=== PATIENT | male | born 1960 | race African-American/Black ===

== ENCOUNTER 2016-12-13 14:04 | Inpatient (IN) | payer OTHER ==
[~2016-12-13] VITALS: Ht 180.3 cm; Wt 93.2 kg
[~2016-12-13 14:04] MED LIST: ASPI81TA9 PO; ATOR20TA58 PO; CANA100T PO; CANA300T PO; CHOL200044 PO; DILT180C2 PO; GLIM4TAB2 PO; METF10002 PO; MULT-208 PO; OMEG1CAP38 PO; QUIN40TA7 PO; SITA100T PO; TAMS0.4C2 PO
[2016-12-13 15:42] LABS: BASO # 0.1 x10^3/uL (0.0-0.2); BASO % 1 % (0-3); EOS % 5 % (0-3); HEMATOCRIT 44.7 % (39.0-53.0); HEMOGLOBIN 14.5 g/dL (13.0-17.5); LYMPH # 2.6 x10^3/uL (1.0-4.8); LYMPH % 29 % (24-48); MEAN CORPUSCULAR HEMOGLOBIN 27 pg (25-35); MEAN CORPUSCULAR HGB CONC 32 g/dL (31-37); MEAN CORPUSCULAR VOLUME 83 fL (79-100); MONO % 6 % (0-9); NEUT % 60 % (31-73); PLATELET COUNT 239 x10^3/uL (140-400); RED BLOOD COUNT 5.42 x10^6/uL (4.30-5.70)
[2016-12-13 16:44] LABS: CALCIUM 9.5 mg/dL (8.5-10.1); CREATININE 1.3 mg/dL (0.7-1.3); GFR 68.6; POTASSIUM 3.8 mmol/L (3.5-5.1)
[2016-12-13] MEDS ORDERED: ASPIRIN 81 MG TAB.CHEW PO ONE (18:00)
--- NOTE | 2016-12-13 18:16 | PHYS DOC ---
Past Medical History Past Medical History: Diabetes-Type II, High Cholesterol, Hypertension, Other Additional Past Medical Histor: bph,SVT Past Surgical History: Other Additional Past Surgical Histo: circumcision, r eye,CARDIAC CATH Alcohol Use: None Drug Use: None Adult General Chief Complaint Chief Complaint: DIZZY/LIGHT HEADED HPI HPI Patient is a 56 year old male who presents with episodes of lightheadedness. Past medical history notable for SVT. Patient reports she has been having episodes like this for year and caused by SVT; they have been becoming more frequent. Last episode occurred approximately 7 PM last night. Aspirin this episode he will become diaphoretic, feels heart racing,, lightheaded. He tried some vagal maneuvers without success, however it resolved on its own and he is able to get out of bed. He spoke with Dr. Dejesus who instructed him to come to the emergency department for evaluation. Patient denies any chest discomfort or shortness of breath, no lightheadedness at this time. Review of Systems Review of Systems Constitutional: Episodes of lightheadedness, diaphoresis. Denies fever or chills Eyes: Denies change in visual acuity or eye pain HENT: Denies nasal congestion or sore throat Respiratory: Denies cough or shortness of breath Cardiovascular: Intermittent palpitations. Denies chest pain GI: Denies abdominal pain, nausea, vomiting, bloody stools or diarrhea : Denies dysuria or hematuria Musculoskeletal: Denies back pain or joint pain Integument: Denies rash or skin lesions Neurologic: Denies headache, focal weakness or sensory changes Current Medications Current Medications Current Medications Medications (Trade) Dose Ordered Sig/Grant Start Time Stop Time Status Last Admin Dose Admin Acetaminophen (Tylenol) 650 mg PRN Q4HRS PRN 12/13/16 18:30 12/14/16 18:29 Aspirin (Children'S Aspirin) 324 mg 1X ONCE 12/13/16 18:00 12/13/16 18:06 DC 12/13/16 18:14 324 MG Dextrose 12.5 gm PRN Q15MIN PRN 12/13/16 18:30 Insulin Aspart (Novolog) 0-7 UNITS TIDWMEALS 12/14/16 08:00 UNV Morphine Sulfate 2 mg PRN Q2HR PRN 12/13/16 18:30 12/14/16 18:29 Ondansetron HCl (Zofran) 4 mg PRN Q8HRS PRN 12/13/16 18:30 12/14/16 18:29 Allergies Allergies Allergies Coded Allergies Type Severity Reaction Last Updated Verified No Known Drug Allergies 03/16/14 No Physical Exam Physical Exam Constitutional: Well developed, well nourished, no acute distress, non-toxic appearance HENT: Normocephalic, atraumatic, bilateral external ears normal Eyes: EOMI, conjunctiva normal, no discharge Neck: Normal range of motion, no stridor Cardiovascular: Heart rate normal, regular rhythm, no murmur Lungs & Thorax: Bilateral breath sounds clear to auscultation Abdomen: Bowel sounds normal, soft, non-distended, no TTP Skin: Warm, dry, no erythema, no rash Extremities: No obvious deformity, no edema Neurologic: Alert and oriented X 3, no gross deficits noted Psychologic: Affect normal, judgement normal, mood normal Current Patient Data Vital Signs Vital Signs Date Time Temp Pulse Resp B/P Pulse Ox O2 Delivery O2 Flow Rate FiO2 12/13/16 18:10 92 26 132/70 95 Room Air 12/13/16 14:10 97.5 97.5 Lab Values Laboratory Tests Test 12/13/16 14:15 White Blood Count 9.0x10^3/uL (4.0-11.0) Red Blood Count 5.42x10^6/uL (4.30-5.70) Hemoglobin 14.5g/dL (13.0-17.5) Hematocrit 44.7% (39.0-53.0) Mean Corpuscular Volume 83fL (79-100) Mean Corpuscular Hemoglobin 27pg (25-35) Mean Corpuscular Hemoglobin Concent 32g/dL (31-37) Red Cell Distribution Width 16.0% (11.5-14.5) H Platelet Count 239x10^3/uL (140-400) Neutrophils (%) (Auto) 60% (31-73) Lymphocytes (%) (Auto) 29% (24-48) Monocytes (%) (Auto) 6% (0-9) Eosinophils (%) (Auto) 5% (0-3) H Basophils (%) (Auto) 1% (0-3) Neutrophils # (Auto) 5.4x10^3uL (1.8-7.7) Lymphocytes # (Auto) 2.6x10^3/uL (1.0-4.8) Monocytes # (Auto) 0.5x10^3/uL (0.0-1.1) Eosinophils # (Auto) 0.4x10^3/uL (0.0-0.7) Basophils # (Auto) 0.1x10^3/uL (0.0-0.2) Sodium Level 146mmol/L (136-145) H Potassium Level 3.8mmol/L (3.5-5.1) Chloride Level 108mmol/L (98-107) H Carbon Dioxide Level 26mmol/L (21-32) Anion Gap 12 (6-14) Blood Urea Nitrogen 20mg/dL (8-26) Creatinine 1.3mg/dL (0.7-1.3) Estimated GFR (Cockcroft-Gault) 68.6 Glucose Level 100mg/dL (70-99) H Calcium Level 9.5mg/dL (8.5-10.1) Magnesium Level 2.0mg/dL (1.8-2.4) Troponin I Quantitative 0.154ng/mL (0.000-0.055) Laboratory Tests 12/13/16 14:15 Laboratory Tests 12/13/16 14:15 EKG EKG EKG (my read): sinus rhythm, rate 88, normal axis, intervals wnl, no acute ischemic changes Radiology/Procedures Radiology/Procedures CXR (my read): No acute abnormality Course & Med Decision Making Course & Med Decision Making Pertinent Labs and Imaging studies reviewed. (See chart for details) Patient is 48-year-old male who presents with increasingly frequent episodes of palpitations, lightheadedness, diaphoresis. Presumably due to SVT. Asymptomatic at this time. Will obtain EKG, chest x-ray, lab work. Chest x-ray and EKG okay per my read. Labs notable for slightly elevated troponin at 0.154. Dose of aspirin ordered. I suspect this is elevated due to the SVT, and not ACS. Spoke with Dr. Zazueta (covering for Dr. Dejesus); will not anticoagulate at this time but will admit for serial troponins. Discussed with Dr. Prado, will admit under his care for further evaluation and treatment. Dragon Disclaimer Dragon Disclaimer This electronic medical record was generated, in whole or in part, using a voice recognition dictation system. Departure Departure Impression: Primary Impression: Arrhythmia Additional Impression: Elevated troponin I level Disposition: ADMITTED INPATIENT Admitting Physician: Margaret Prado Condition: STABLE Referrals: SHAUNA AVILA (PCP) Problem Qualifiers BERNY GRAY MD Dec 13, 2016 18:16
[2016-12-13] MEDS ORDERED: ONDANSETRON PF 4 MG/2 ML VIAL. IV PRN (18:30)
[2016-12-13] MEDS ORDERED: ACETAMINOPHEN 325 MG TABLET. PO PRN (18:30)
[2016-12-13] MEDS ORDERED: DEXTROSE 50% 25 GM / 50ML DISP.SYRIN. IV PRN (18:30)
[2016-12-13] MEDS ORDERED: MORPHINE SULFATE 2 MG/ML DISP.SYRIN. IV PRN (18:30)
--- NOTE | 2016-12-13 18:59 | EKG ---
[facility] [address] [place] [address] Test Date: 2016-12-13 Test Time: 14:13:03 Pat Name: RENUKA PIERCE Department: Room: Gender: M Manager Retail: : 1960 Requested By: BERNY GRAY Order Number: [id number] Reading MD: Rebeka Zazueta Measurements Intervals [place] Rate: 88 P: 47 MI: 170 QRS: 26 QRSD: 78 T: 56 QT: 342 QTc: 417 Interpretive Statements SINUS RHYTHM LEFT ATRIAL ABNORMALITY QRS(T) CONTOUR ABNORMALITY CONSISTENT WITH ANTEROSEPTAL INFARCT PROBABLY OLD ABNORMAL ECG RI6.01 Compared to ECG 11/24/2016 14:18:01 Atrial abnormality now present Myocardial infarct finding now present Sinus tachycardia no longer present Electronically Signed On 12-14-2016 19:12:44 TRAINING MANAGER by Rebeka Zazueta
[2016-12-13 20:24] VITALS: BP 115/71
[2016-12-13] MEDS: ATORVASTATIN CALCIUM 20 MG TABLET PO SCH (22:08)
[2016-12-13] MEDS: TAMSULOSIN 0.4 MG CAP.ER.24H. PO SCH (22:08)
[2016-12-13] MEDS: OMEGA-3 FATTY ACIDS/FISH OIL 1,000 MG CAPSULE. PO SCH (22:08)
[2016-12-13] MEDS: GLIMEPIRIDE 2 MG TABLET PO SCH (22:09)
[2016-12-13 23:38] VITALS: BP 115/59
--- NOTE | 2016-12-14 00:06 | ACF ---
Admission Forms Criteria SUPRAVENTRICULAR ARRHYTHMIAS Clinical Indications for Admission to Inpatient Care (Place 'X' for any and all applicable criteria): Admission is indicated by ANY ONE of the following (1)(2): [X]I. Arrhythmia causing significant symptoms or findings as indicated by ANY ONE of the following: [ ]a) Chest pain [ ]b) Myocardial ischemia [ ]c) Altered mental status [X]d) Dizziness, weakness, or light-headedness [ ]e) Dyspnea or hypoxemia [ ]f) Heart failure (eg, pulmonary edema)(11) [ ]II. Initiation of antiarrhythmic drug therapy is needed in patient at high risk of adverse events as indicated by ANY ONE of the following: [ ]a) Significant structural heart disease (eg, aortic stenosis, reduced ejection fraction, cardiomyopathy, congenital heart disease) [ ]b) Underlying sinus node or atrioventricular conduction disturbances [ ]c) Prolonged QT interval [ ]d) Need for treatment with antiarrhythmic that have significant proarrhythmic potential ( procainamide) [ ]e) Patient whose sinus rhythm has not been observed on ECG [ ]III. Inpatient admission required rather than observation care because of ANY ONE of the following: [ ]a) Syncope [ ]b) Patient has automatic implanted cardioverter-defibrillator that is repeatedly firing, malfunctioning, or in need of immediate adjustment of settings beyond scope of ambulatory or observation care. [ ]c) Hemodynamic instability that is severe or persistent [ ]d) Unstable cardiac conduction defects indicated by ANY ONE of the following(19)(20)(21): [ ]a) Type II second-degree atrioventricular block [ ]b) Third-degree atrioventricular block [ ]C) New-onset left bundle branch block with suspected myocardial ischemia [ ]e) Severe electrolyte abnormalities requiring inpatient care [ ]f) Continuous intravenous infusion of anticoagulation, platelet inhibitor, vasoactive, or antiarrhythmic medication(14) [ ]g) Pulmonary artery catheter monitoring [ ]h) Repeat cardioversion necessary [ ]i) Other condition, treatment or monitoring requiring inpatient admission [ ]IV. Underlying medical condition that necessitates inpatient care (eg, thyrotoxicosis, severe acidosis) Extended stay beyond goal length of stay may be needed for(1)(17)(18): [ ]a) Persistent hemodynamic instability or continued severe arrhythmia [ ]b) Continued monitoring during initiation of certain medications (eg, some antiarrhythmics)(17)(19) [ ]c) Precipitating cause requires ongoing inpatient care (eg, severe electrolyte abnormality, systemic infection, acidosis) [ ]d) Unstable comorbidities The original [facility] content created by [facility] has been revised. The portions of the content which have been revised are identified through the use of italic text or in bold, and [facility] has neither reviewed nor approved the modified material. All other unmodified content is copyright [facility]. Please see references footnoted in the original [facility] edition 2016 Admission Criteria Met?: Yes ANDREA CENTENO Dec 14, 2016 00:06
[2016-12-14 02:19] VITALS: BP 103/56
--- NOTE | 2016-12-14 04:48 | HP ---
ADMIT DATE: 12/13/2016 CHIEF COMPLAINT: Lightheadedness, palpitations. HISTORY OF PRESENT ILLNESS: The patient is a pleasant 56-year-old male who follows with Dr. Dejesus. He has been having chronic issues with SVT. It has been worsening over the past couple of days. Today, he felt his heart racing again. He called Dr. Dejesus. He was told to go to the ER. While in the ER, he was noted to have an elevated troponin and arrhythmia. I discussed the case with ER physician. We are going to admit the patient, consulting cardiology. PAST MEDICAL HISTORY: SVT, BPH, diabetes, hyperlipidemia, hypertension, cardiac catheterization, circumcision, and right eye surgery. ALLERGIES: None. FAMILY HISTORY: Coronary artery disease. SOCIAL HISTORY: He works. He does not drink, smoke or take drugs. He is . MEDICATIONS: Reviewed, please refer to the MRAD. REVIEW OF SYSTEMS: GENERAL: No history of weight change, weakness or fevers. SKIN: No bruising, hair changes or rashes. EYES: No blurred, double or loss of vision. NOSE AND THROAT: No history of nosebleeds, hoarseness or sore throat. HEART: The patient complains of palpitations. LUNGS: Denies cough, hemoptysis, wheezing or shortness of breath. GASTROINTESTINAL: Denies changes in appetite, nausea, vomiting, diarrhea or constipation. GENITOURINARY: No history of frequency, urgency, hesitancy or nocturia. NEUROLOGIC: Denies history of numbness, tingling, tremor or weakness. PSYCHIATRIC: No history of panic, anxiety or depression. ENDOCRINE: No history of heat or cold intolerance, polyuria or polydipsia. EXTREMITIES: Denies muscle weakness, joint pain, pain on walking or stiffness. PHYSICAL EXAMINATION: VITAL SIGNS: Temperature afebrile, pulse currently at 80, respirations 18, blood pressure 113/60. GENERAL: He is alert, cooperative. His is present. HEART: Normal S1, S2. LUNGS: Clear. ABDOMEN: Soft. EXTREMITIES: No edema. SKIN: No rashes. PSYCHIATRIC: Stable. VASCULAR: Good capillary refill. ENDOCRINE: No thyromegaly. LYMPHATICS: No cervical nodes. HEMATOPOIETIC: No bruising. LABORATORY DATA: Hematology normal. Electrolytes normal, although sodium 146 and chloride 108. Troponin 0.154. ASSESSMENT AND PLAN: Recurrent supraventricular tachycardia. The patient has been admitted. We will consult cardiology, serial enzymes, serial EKGs. Resume home medicines. JOSELITO CARREON DO DR: PRAVIN/lamont JOB#: [id number] / [id number]
[2016-12-14] MEDS ORDERED: ASPIRIN ENTERIC COATED 81 MG TABLET.DR. PO SCH (05:00)
[2016-12-14] MEDS ORDERED: NON FORMULARY ITEM (Canagliflozin (Invokana) 300 MG) PO SCH (05:00)
[2016-12-14 05:56] LABS: BASO # 0.1 x10^3/uL (0.0-0.2); BASO % 1 % (0-3); EOS % 6 % (0-3); HEMATOCRIT 43.3 % (39.0-53.0); HEMOGLOBIN 13.9 g/dL (13.0-17.5); LYMPH # 3.4 x10^3/uL (1.0-4.8); LYMPH % 36 % (24-48); MEAN CORPUSCULAR HEMOGLOBIN 27 pg (25-35); MEAN CORPUSCULAR HGB CONC 32 g/dL (31-37); MEAN CORPUSCULAR VOLUME 83 fL (79-100); MONO % 7 % (0-9); NEUT % 51 % (31-73); PLATELET COUNT 224 x10^3/uL (140-400); RED BLOOD COUNT 5.21 x10^6/uL (4.30-5.70); RED CELL DISTRIBUTION WIDTH 15.8 % (11.5-14.5); WHITE BLOOD COUNT 9.3 x10^3/uL (4.0-11.0)
[2016-12-14 06:19] LABS: GFR 92.9
[2016-12-14] MEDS ORDERED: REGADENOSON 0.4 MG/5 ML DISP.SYRIN. IV ONE (08:15)
--- NOTE | 2016-12-14 08:15 | RAD ---
Two view chest History:episodes of dizziness PA and lateral views of the chest are submitted. Comparison: 09/09/2014 Findings: There is no significant infiltrate, pleural effusion, or pneumothorax. The pericardial cardiac silhouette is within normal limits in size. The trachea is in the midline. No acute osseous abnormality is identified. Impression: There is no evidence of acute cardiopulmonary disease.
[2016-12-14 10:32] VITALS: BP 110/60
--- NOTE | 2016-12-14 11:49 | PDOC ---
PROGRESS NOTES Chief Complaint Chief Complaint cc: chest pain A/P chest pain Diabetes-Type II, High Cholesterol, Hypertension Plan Cardizem telemetry nuclear stress test cbc/bmp premsingh following History of Present Illness History of Present Illness no chest pain no fever no chills. Vitals Vitals Vital Signs Date Time Temp Pulse Resp B/P Pulse Ox O2 Delivery O2 Flow Rate FiO2 12/14/16 10:32 97.7 85 16 110/60 92 Room Air 97.7 Physical Exam General: Alert, Oriented X3 Heart: Regular rate, Normal S1, Normal S2 Lungs: Clear, Wheezing Abdomen: Normal bowel sounds, Soft Labs LABS Laboratory Tests Test 12/13/16 14:15 12/13/16 21:16 12/14/16 00:30 12/14/16 03:00 White Blood Count 9.0x10^3/uL (4.0-11.0) 9.3x10^3/uL (4.0-11.0) Red Blood Count 5.42x10^6/uL (4.30-5.70) 5.21x10^6/uL (4.30-5.70) Hemoglobin 14.5g/dL (13.0-17.5) 13.9g/dL (13.0-17.5) Hematocrit 44.7% (39.0-53.0) 43.3% (39.0-53.0) Mean Corpuscular Volume 83fL (79-100) 83fL (79-100) Mean Corpuscular Hemoglobin 27pg (25-35) 27pg (25-35) Mean Corpuscular Hemoglobin Concent 32g/dL (31-37) 32g/dL (31-37) Red Cell Distribution Width 16.0% (11.5-14.5) 15.8% (11.5-14.5) Platelet Count 239x10^3/uL (140-400) 224x10^3/uL (140-400) Neutrophils (%) (Auto) 60% (31-73) 51% (31-73) Lymphocytes (%) (Auto) 29% (24-48) 36% (24-48) Monocytes (%) (Auto) 6% (0-9) 7% (0-9) Eosinophils (%) (Auto) 5% (0-3) 6% (0-3) Basophils (%) (Auto) 1% (0-3) 1% (0-3) Neutrophils # (Auto) 5.4x10^3uL (1.8-7.7) 4.7x10^3uL (1.8-7.7) Lymphocytes # (Auto) 2.6x10^3/uL (1.0-4.8) 3.4x10^3/uL (1.0-4.8) Monocytes # (Auto) 0.5x10^3/uL (0.0-1.1) 0.6x10^3/uL (0.0-1.1) Eosinophils # (Auto) 0.4x10^3/uL (0.0-0.7) 0.5x10^3/uL (0.0-0.7) Basophils # (Auto) 0.1x10^3/uL (0.0-0.2) 0.1x10^3/uL (0.0-0.2) Sodium Level 146mmol/L (136-145) 142mmol/L (136-145) Potassium Level 3.8mmol/L (3.5-5.1) 4.0mmol/L (3.5-5.1) Chloride Level 108mmol/L (98-107) 106mmol/L (98-107) Carbon Dioxide Level 26mmol/L (21-32) 27mmol/L (21-32) Anion Gap 12 (6-14) 9 (6-14) Blood Urea Nitrogen 20mg/dL (8-26) 18mg/dL (8-26) Creatinine 1.3mg/dL (0.7-1.3) 1.0mg/dL (0.7-1.3) Estimated GFR (Cockcroft-Gault) 68.6 92.9 Glucose Level 100mg/dL (70-99) 98mg/dL (70-99) Calcium Level 9.5mg/dL (8.5-10.1) 9.0mg/dL (8.5-10.1) Magnesium Level 2.0mg/dL (1.8-2.4) Troponin I Quantitative 0.154ng/mL (0.000-0.055) 0.073ng/mL (0.000-0.055) 0.060ng/mL (0.000-0.055) Thyroid Stimulating Hormone (TSH) 0.444uIU/mL (0.358-3.74) Glucose (Fingerstick) 128mg/dL (70-99) Assessment and Plan Assessmemt and Plan Problems Medical Problems: (1) Arrhythmia Status: Acute (2) Arrhythmia Status: Acute (3) Elevated troponin Status: Acute (4) Elevated troponin I level Status: Acute Problems: Comment Review of Relevant I have reviewed the following items reuben (where applicable) has been applied. Labs Laboratory Tests Test 12/13/16 14:15 12/13/16 21:16 12/14/16 00:30 12/14/16 03:00 White Blood Count 9.0x10^3/uL (4.0-11.0) 9.3x10^3/uL (4.0-11.0) Red Blood Count 5.42x10^6/uL (4.30-5.70) 5.21x10^6/uL (4.30-5.70) Hemoglobin 14.5g/dL (13.0-17.5) 13.9g/dL (13.0-17.5) Hematocrit 44.7% (39.0-53.0) 43.3% (39.0-53.0) Mean Corpuscular Volume 83fL (79-100) 83fL (79-100) Mean Corpuscular Hemoglobin 27pg (25-35) 27pg (25-35) Mean Corpuscular Hemoglobin Concent 32g/dL (31-37) 32g/dL (31-37) Red Cell Distribution Width 16.0% (11.5-14.5) 15.8% (11.5-14.5) Platelet Count 239x10^3/uL (140-400) 224x10^3/uL (140-400) Neutrophils (%) (Auto) 60% (31-73) 51% (31-73) Lymphocytes (%) (Auto) 29% (24-48) 36% (24-48) Monocytes (%) (Auto) 6% (0-9) 7% (0-9) Eosinophils (%) (Auto) 5% (0-3) 6% (0-3) Basophils (%) (Auto) 1% (0-3) 1% (0-3) Neutrophils # (Auto) 5.4x10^3uL (1.8-7.7) 4.7x10^3uL (1.8-7.7) Lymphocytes # (Auto) 2.6x10^3/uL (1.0-4.8) 3.4x10^3/uL (1.0-4.8) Monocytes # (Auto) 0.5x10^3/uL (0.0-1.1) 0.6x10^3/uL (0.0-1.1) Eosinophils # (Auto) 0.4x10^3/uL (0.0-0.7) 0.5x10^3/uL (0.0-0.7) Basophils # (Auto) 0.1x10^3/uL (0.0-0.2) 0.1x10^3/uL (0.0-0.2) Sodium Level 146mmol/L (136-145) 142mmol/L (136-145) Potassium Level 3.8mmol/L (3.5-5.1) 4.0mmol/L (3.5-5.1) Chloride Level 108mmol/L (98-107) 106mmol/L (98-107) Carbon Dioxide Level 26mmol/L (21-32) 27mmol/L (21-32) Anion Gap 12 (6-14) 9 (6-14) Blood Urea Nitrogen 20mg/dL (8-26) 18mg/dL (8-26) Creatinine 1.3mg/dL (0.7-1.3) 1.0mg/dL (0.7-1.3) Estimated GFR (Cockcroft-Gault) 68.6 92.9 Glucose Level 100mg/dL (70-99) 98mg/dL (70-99) Calcium Level 9.5mg/dL (8.5-10.1) 9.0mg/dL (8.5-10.1) Magnesium Level 2.0mg/dL (1.8-2.4) Troponin I Quantitative 0.154ng/mL (0.000-0.055) 0.073ng/mL (0.000-0.055) 0.060ng/mL (0.000-0.055) Thyroid Stimulating Hormone (TSH) 0.444uIU/mL (0.358-3.74) Glucose (Fingerstick) 128mg/dL (70-99) Laboratory Tests Test 12/13/16 14:15 12/13/16 21:16 12/14/16 00:30 12/14/16 03:00 White Blood Count 9.0x10^3/uL (4.0-11.0) 9.3x10^3/uL (4.0-11.0) Red Blood Count 5.42x10^6/uL (4.30-5.70) 5.21x10^6/uL (4.30-5.70) Hemoglobin 14.5g/dL (13.0-17.5) 13.9g/dL (13.0-17.5) Hematocrit 44.7% (39.0-53.0) 43.3% (39.0-53.0) Mean Corpuscular Volume 83fL (79-100) 83fL (79-100) Mean Corpuscular Hemoglobin 27pg (25-35) 27pg (25-35) Mean Corpuscular Hemoglobin Concent 32g/dL (31-37) 32g/dL (31-37) Red Cell Distribution Width 16.0% (11.5-14.5) 15.8% (11.5-14.5) Platelet Count 239x10^3/uL (140-400) 224x10^3/uL (140-400) Neutrophils (%) (Auto) 60% (31-73) 51% (31-73) Lymphocytes (%) (Auto) 29% (24-48) 36% (24-48) Monocytes (%) (Auto) 6% (0-9) 7% (0-9) Eosinophils (%) (Auto) 5% (0-3) 6% (0-3) Basophils (%) (Auto) 1% (0-3) 1% (0-3) Neutrophils # (Auto) 5.4x10^3uL (1.8-7.7) 4.7x10^3uL (1.8-7.7) Lymphocytes # (Auto) 2.6x10^3/uL (1.0-4.8) 3.4x10^3/uL (1.0-4.8) Monocytes # (Auto) 0.5x10^3/uL (0.0-1.1) 0.6x10^3/uL (0.0-1.1) Eosinophils # (Auto) 0.4x10^3/uL (0.0-0.7) 0.5x10^3/uL (0.0-0.7) Basophils # (Auto) 0.1x10^3/uL (0.0-0.2) 0.1x10^3/uL (0.0-0.2) Sodium Level 146mmol/L (136-145) 142mmol/L (136-145) Potassium Level 3.8mmol/L (3.5-5.1) 4.0mmol/L (3.5-5.1) Chloride Level 108mmol/L (98-107) 106mmol/L (98-107) Carbon Dioxide Level 26mmol/L (21-32) 27mmol/L (21-32) Anion Gap 12 (6-14) 9 (6-14) Blood Urea Nitrogen 20mg/dL (8-26) 18mg/dL (8-26) Creatinine 1.3mg/dL (0.7-1.3) 1.0mg/dL (0.7-1.3) Estimated GFR (Cockcroft-Gault) 68.6 92.9 Glucose Level 100mg/dL (70-99) 98mg/dL (70-99) Calcium Level 9.5mg/dL (8.5-10.1) 9.0mg/dL (8.5-10.1) Magnesium Level 2.0mg/dL (1.8-2.4) Troponin I Quantitative 0.154ng/mL (0.000-0.055) 0.073ng/mL (0.000-0.055) 0.060ng/mL (0.000-0.055) Thyroid Stimulating Hormone (TSH) 0.444uIU/mL (0.358-3.74) Glucose (Fingerstick) 128mg/dL (70-99) Medications Current Medications Aspirin (Children'S Aspirin) 324 mg 1X ONCE PO Last administered on 12/13/16 18:14; Start 12/13/16 at 18:00; Stop 12/13/16 at 18:06; Status DC Ondansetron HCl (Zofran) 4 mg PRN Q8HRS PRN IV NAUSEA/VOMITING; Start 12/13/16 at 18:30; Stop 12/14/16 at 18:29 Morphine Sulfate 2 mg PRN Q2HR PRN IV PAIN; Start 12/13/16 at 18:30; Stop 12/14 at 18:29 Acetaminophen (Tylenol) 650 mg PRN Q4HRS PRN PO FEVER; Start 12/13/16 at 18:30 ; Stop 12/14/16 at 18:29 Insulin Aspart (Novolog) 0-7 UNITS TIDWMEALS SQ ; Start 12/14/16 at 08:00 Dextrose 12.5 gm PRN Q15MIN PRN IV SEE COMMENTS; Start 12/13/16 at 18:30 Aspirin (Ecotrin) 81 mg DAILY05 PO ; Start 12/14/16 at 05:00 Atorvastatin Calcium (Lipitor) 20 mg QHS PO Last administered on 12/13/16 22: 08; Start 12/13/16 at 21:00 Diltiazem HCl (Cardizem 24hr Cd) 180 mg DAILY PO ; Start 12/14/16 at 09:00 Tamsulosin HCl (Flomax) 0.4 mg HS PO Last administered on 12/13/16 22:08; Start 12/13/16 at 21:00 Non-Formulary Medication 300 mg DAILY05 PO ; Start 12/14/16 at 05:00; Status UNV Glimepiride (Amaryl) 4 mg BID PO Last administered on 12/13/16 22:09; Start at 21:00 Multivitamins/ Calcium (Thera M Plus) 1 tab DAILY PO ; Start 12/14/16 at 09:00 Fish Oil (Fish Oil) 1,000 mg BID PO Last administered on 12/13/16 22:08; Start 12/13/16 at 21:00 Lisinopril (Prinivil) 40 mg DAILY PO ; Start 12/14/16 at 09:00 Linagliptin (Tradjenta) 5 mg DAILY PO ; Start 12/14/16 at 09:00 Regadenoson (Lexiscan) 0.4 mg 1X ONCE IV Last administered on 12/14/16t 09:42 ; Start 12/14/16 at 08:15; Stop 12/14/16 at 08:16; Status DC Active Scripts Active Reported Cardizem Cd (Diltiazem Hcl) 180 Mg Cap.er.24h 180 Mg PO DAILY D3-2000 (Cholecalciferol (Vitamin D3)) 2,000 Unit Capsule 5,000 Unit PO Quinapril Hcl 40 Mg Tablet 1 Tab PO DAILY Aspirin Ec (Aspirin) 81 Mg Tablet.dr 81 Mg PO DAILY05 Januvia (Sitagliptin Phosphate) 100 Mg Tablet 1 Tab PO DAILY Invokana (Canagliflozin) 300 Mg Tablet 300 Mg PO DAILY05 Glimepiride 4 Mg Tablet 1 Tab PO BID Metformin Hcl 1,000 Mg Tablet 1 Tab PO BID [place] 3 Fish Oil Softgel ([place]-3 Fatty Acids/Fish Oil) 1 Each Capsule. 1 Each PO BID Multi-Day Vitamins (Multivitamin) 1 Each Tablet 1 Tab PO BID Tamsulosin Hcl 0.4 Mg Cap.er.24h 0.4 Mg PO HS Atorvastatin Calcium 20 Mg Tablet 20 Mg PO DAILY Vitals/I & O Vital Sign - Last 24 Hours 12/13/16 12/13/16 12/13/16 12/13/16 14:10 14:13 14:43 15:13 Temp 97.5 97.5 Pulse 96 94 90 90 Resp 26 B/P 137/70 122/67 115/75 119/73 Pulse Ox 96 95 95 O2 Delivery Room Air Room Air Room Air Room Air 12/13/16 12/13/16 12/13/16 12/13/16 18:10 20:00 20:24 20:24 Temp 97.7 97.7 97.7 97.7 Pulse 92 88 83 83 Resp 26 18 18 18 B/P 132/70 119/60 115/71 115/71 Pulse Ox 95 96 96 96 O2 Delivery Room Air Room Air Room Air Room Air 12/13/16 12/14/16 12/14/16 23:38 02:19 10:32 Temp 98.4 97.9 97.7 98.4 97.9 97.7 Pulse 75 65 85 Resp 20 18 16 B/P 115/59 103/56 110/60 Pulse Ox 96 97 92 O2 Delivery Room Air Room Air Room Air Intake and Output 12/13/16 12/13/16 12/14/16 15:00 23:00 07:00 Intake Total 800 ml Balance 800 ml TAMI BAUTISTA MD Dec 14, 2016 11:49
[2016-12-14] MEDS: INSULIN ASPART 300 UNITS/3 ML INSULN.PEN SQ SCH ×3 (12:00→17:00)
--- NOTE | 2016-12-14 12:53 | RAD ---
APPROVED REPORT Test Type: Pharmacological Stress Nurse/Tech: Lexi Levy R.N. Test Indications: CP, SVT Cardiac History: SVT, HTN Medications: SEE EMR Medical History: Former smoker, DM Resting ECG: SR PAC's Resting Heart Rate: 77 bpm Resting Blood Pressure: 125/63mmHg Pretest Chest Pain: None Nurse/Tech Notes S1S2, lungs CTA, denied chest pain or SOA. Consent: The procedure was explained to the patient in lay terms. Informed consent was witnessed. Arturo eout was entered into [employer]. History and Stress Test performed by Lexi Levy R.N. Pharm. Details Pharmacologic stress testing was performed using 0.4mg per 5ml of regadenoson given intravenously ove r 7-10 seconds. Stress Symptoms SOA. POST EXERCISE Reason for Termination: Infusion complete Max HR: 119 bpm Max Blood Pressure: 134/62mmHg Blood Pressure response to exercise: Normal blood pressure response during stress. Heart Rate response to exercise: Normal Chest Pain: No. Arrhythmia: Yes. PAC's ST Change: No. INTERPRETATION Stress EKG Conclusion: No acute changes were noted. Imaging Protocol IMAGE PROTOCOL: Rest Tc-99m/stress Tc-99m 1 day Rest: Stress: Viability: Radiopharm.Tc99m [id number] Sestamibi Dose12.8mCi 38.4mCi Duration 15min. 10min. Img Date 12/14/2016 12/14/2016 Inj-Img [id number]. 60min. Rest Admin Site:IV - Left AntecubitalAdministrator:RICKI Guillermo Stress Admin Site: IV - Left AntecubitalAdministrator: RICKI Guillermo STRESS DATA End Diast. Vol.116.0mlAv. Heart Rate82.0bpm End Syst. Vol.40.0mlCO Index BSA0.0L/min Myocardial Jybe420.0gEject. Aaqohggj62.0% Stress Rates Pk. Fill Rate2.96EDV/secLVtime Pk. Fill 92.81msec Pk. Empty Rate4.70ESV/secLVtime Pk. Yssyr772.91msec 11/04 Pk. Fill1.96EDV/sec Stress Scores Regional WT0.00Summed WT1.00 Regional WM0.00Summed WM1.00 LV Perf. Quant 17 Seg. SSS0.00 17 Seg. SRS0.00 17 Seg. SDS0.00 Stress Defect Extent (% LAD)0.00Rest Defect Extent (% LAD)0.00Rev. Defect Extent (% LAD)0.00 Stress Defect Extent (% LCX) 0.00Rest Defect Extent (% LCX)0.00Rev. Defect Extent (% LCX)0.00 Stress Defect Extent (% RCA)0.00Rest Defect Extent (% RCA)0.00Rev. Defect Extent (% RCA)0.00 Stress Defect Extent (% CHEYANNE)0.00Rest Defect Extent (% CHEYANNE)0.00Rev. Defect Extent (% CHEYANNE)0.00 Conclusion 1. Mick eectrocardiographic changes suggestive of myocardial ischemia with pharmacological stress. 2. No significant perfusion defects to suggest myocardial ischemia or scar. 3. Normal wall motion and wall thickening with an ejection fraction of 66%. 4. Scan indicates low risk for future cardiac events.
[2016-12-14] MEDS: GLIMEPIRIDE 2 MG TABLET PO SCH ×2 (13:43→21:06)
[2016-12-14] MEDS: MULTIVITAMIN with MINERAL TABLET. PO SCH (13:43)
[2016-12-14] MEDS: OMEGA-3 FATTY ACIDS/FISH OIL 1,000 MG CAPSULE. PO SCH ×2 (13:43→21:06)
[2016-12-14] MEDS: LINAGLIPTIN 5 MG TABLET PO SCH (13:45)
[2016-12-14] MEDS: DILTIAZEM HCL 180 MG CAP.ER.24H PO SCH (13:45)
[2016-12-14] MEDS: LISINOPRIL 40 MG TABLET. PO SCH (13:46)
[2016-12-14 15:00] VITALS: BP 133/72
[2016-12-14 19:48] VITALS: BP 126/54
[2016-12-14] MEDS: TAMSULOSIN 0.4 MG CAP.ER.24H. PO SCH (21:06)
[2016-12-14] MEDS: ATORVASTATIN CALCIUM 20 MG TABLET PO SCH (21:06)
[2016-12-14 23:37] VITALS: BP 97/57
--- NOTE | 2016-12-15 02:15 | CONS ---
DATE OF CONSULTATION: HISTORY OF PRESENT ILLNESS: This is a 66-year-old black male that I saw for Dr. Dejesus. This patient came into the Emergency Room having had an episode of palpitations the previous night. The palpitations started around 7:00 p.m. and resolved at around 1:00 a.m. He tried various maneuvers, but it did not resolve. He felt well the next morning and had no palpitations, but thought he would have to come to the Emergency Room to check himself. He had been hospitalized on the 24 of November having had palpitations at work. The ambulance was called. Rhythm strip recorded an SVT that Dr. Dejesus probably saw, but did make a note in his chart. He was discharged on Cardizem. He was allowed to go back to work. He was taking the Cardizem and despite that had an episode of palpitation on the day prior to hospitalization. He had had an episode of syncope in 2002, the etiology of which was never determined and no arrhythmia was recorded. Previous history of hypertension, diabetes and dyslipidemia. He smoked from 9184-2930 but has not smoked since then. He takes alcohol only very occasionally. He works and he usually works several nights a week. MEDICATIONS: 1. Aspirin 81 mg a day. 2. Atorvastatin 20 mg a day. 3. Invokana 300 mg a day. 4. Vitamin D. 5. Diltiazem 180 mg a day. 6. Glimepiride 4 mg a day. 7. Metformin 1000 mg twice a day. 8. Gilman 3 fatty acids. 9. Quinapril 40 mg a day. 10. ____ 100 mg a day. 11. Tamsulosin 0.4 mg a day. PHYSICAL EXAMINATION: GENERAL: He was in no distress. VITAL SIGNS: The heart rate was 80 per minute and regular. The blood pressure is 130/80. LUNGS: Clear. HEART: The heart sounds are normal with no murmur or gallop. ABDOMEN: Soft. EXTREMITIES: There is no edema. The distal pulses are palpable. LABORATORY DATA: The hemoglobin was normal. The TSH was somewhat low recently, but the free T3 and free T4 were normal. An echocardiogram done just 10 days ago showed a normal EF and no significant valvular dysfunction and no pulmonary hypertension. The troponin was mildly elevated to 0.154. His troponin was mildly elevated. The last time also when he came in after the episode of the supraventricular tachycardia. An EKG was normal. A chest x-ray was normal. IMPRESSION: 1. Probable supraventricular tachycardia. 2. Mild elevation in troponin, probably secondary to subendocardial ischemia during the tachycardia. Because of his risk factors of hypertension, diabetes and dyslipidemia, even though they are under control, presumably because of the mild elevation in the troponin with a supraventricular tachycardia, I would like to perform a myocardial perfusion imaging study to see whether he has evidence of underlying coronary artery disease. Otherwise I would continue with Cardizem that he is on. Dr. Dejesus returns tomorrow. Thank you for asking us to see him. TISHA ANNA MD DR: ABDULKADIR/lamont JOB#: [id number] / [id number]
[2016-12-15 03:15] VITALS: BP 85/51
[2016-12-15 03:33] VITALS: BP 100/54
[2016-12-15 07:39] VITALS: BP 111/71
[2016-12-15] MEDS: INSULIN ASPART 300 UNITS/3 ML INSULN.PEN SQ SCH ×2 (08:00→12:50)
[2016-12-15] MEDS ORDERED: ASPIRIN ENTERIC COATED 81 MG TABLET.DR. PO SCH (09:00)
[2016-12-15] MEDS: DILTIAZEM HCL 180 MG CAP.ER.24H PO SCH (10:04)
[2016-12-15] MEDS: OMEGA-3 FATTY ACIDS/FISH OIL 1,000 MG CAPSULE. PO SCH (10:05)
[2016-12-15] MEDS: GLIMEPIRIDE 2 MG TABLET PO SCH (10:05)
[2016-12-15] MEDS: LISINOPRIL 40 MG TABLET. PO SCH (10:05)
[2016-12-15] MEDS: LINAGLIPTIN 5 MG TABLET PO SCH (10:05)
[2016-12-15] MEDS: MULTIVITAMIN with MINERAL TABLET. PO SCH (10:05)
[2016-12-15 11:14] VITALS: BP 113/73
--- NOTE | 2016-12-15 12:49 | PDOC ---
PROGRESS NOTES Subjective Subjective Pt was laying comfortably in bed when we saw him this morning. Pt was in good spirits and stated he feels fine. Pt stated he has had spells of light headedness, diaphoretic, and palpitations 4-5 times since November. Pt has no complaints at this time. Pt denied chest pain, palpitations, SOB, n/v, headache , diaphoresis. Objective Objective Vital Signs Date Time Temp Pulse Resp B/P Pulse Ox O2 Delivery O2 Flow Rate FiO2 12/15/16 11:14 98.0 66 20 113/73 97 Room Air 98.0 Intake and Output 12/15/16 07:00 Intake Total 940 ml Balance 940 ml Intake Oral 940 ml # Voids 5 Physical Exam Heart: Regular rate, Normal S1, Normal S2, No murmurs Assessment Assessment Problems Medical Problems: (1) Arrhythmia Status: Acute (2) Arrhythmia Status: Acute (3) Chest pain Status: Acute (4) Elevated troponin Status: Acute (5) Elevated troponin I level Status: Acute Plan Plan of Care Paroxysmal SVT Agree with current treatment Stop Cardizem Start Amiodarone 400 mg BID for 7 days then 200 mg once a day Stable for discharge Comment Review of Relevant I have reviewed the following items reuben (where applicable) has been applied. Labs Laboratory Tests Test 12/13/16 14:15 12/13/16 21:16 12/14/16 00:30 12/14/16 03:00 White Blood Count 9.0x10^3/uL (4.0-11.0) 9.3x10^3/uL (4.0-11.0) Red Blood Count 5.42x10^6/uL (4.30-5.70) 5.21x10^6/uL (4.30-5.70) Hemoglobin 14.5g/dL (13.0-17.5) 13.9g/dL (13.0-17.5) Hematocrit 44.7% (39.0-53.0) 43.3% (39.0-53.0) Mean Corpuscular Volume 83fL (79-100) 83fL (79-100) Mean Corpuscular Hemoglobin 27pg (25-35) 27pg (25-35) Mean Corpuscular Hemoglobin Concent 32g/dL (31-37) 32g/dL (31-37) Red Cell Distribution Width 16.0% (11.5-14.5) 15.8% (11.5-14.5) Platelet Count 239x10^3/uL (140-400) 224x10^3/uL (140-400) Neutrophils (%) (Auto) 60% (31-73) 51% (31-73) Lymphocytes (%) (Auto) 29% (24-48) 36% (24-48) Monocytes (%) (Auto) 6% (0-9) 7% (0-9) Eosinophils (%) (Auto) 5% (0-3) 6% (0-3) Basophils (%) (Auto) 1% (0-3) 1% (0-3) Neutrophils # (Auto) 5.4x10^3uL (1.8-7.7) 4.7x10^3uL (1.8-7.7) Lymphocytes # (Auto) 2.6x10^3/uL (1.0-4.8) 3.4x10^3/uL (1.0-4.8) Monocytes # (Auto) 0.5x10^3/uL (0.0-1.1) 0.6x10^3/uL (0.0-1.1) Eosinophils # (Auto) 0.4x10^3/uL (0.0-0.7) 0.5x10^3/uL (0.0-0.7) Basophils # (Auto) 0.1x10^3/uL (0.0-0.2) 0.1x10^3/uL (0.0-0.2) Sodium Level 146mmol/L (136-145) 142mmol/L (136-145) Potassium Level 3.8mmol/L (3.5-5.1) 4.0mmol/L (3.5-5.1) Chloride Level 108mmol/L (98-107) 106mmol/L (98-107) Carbon Dioxide Level 26mmol/L (21-32) 27mmol/L (21-32) Anion Gap 12 (6-14) 9 (6-14) Blood Urea Nitrogen 20mg/dL (8-26) 18mg/dL (8-26) Creatinine 1.3mg/dL (0.7-1.3) 1.0mg/dL (0.7-1.3) Estimated GFR (Cockcroft-Gault) 68.6 92.9 Glucose Level 100mg/dL (70-99) 98mg/dL (70-99) Calcium Level 9.5mg/dL (8.5-10.1) 9.0mg/dL (8.5-10.1) Magnesium Level 2.0mg/dL (1.8-2.4) Troponin I Quantitative 0.154ng/mL (0.000-0.055) 0.073ng/mL (0.000-0.055) 0.060ng/mL (0.000-0.055) Thyroid Stimulating Hormone (TSH) 0.444uIU/mL (0.358-3.74) Glucose (Fingerstick) 128mg/dL (70-99) Test 12/14/16 13:09 12/14/16 17:40 12/15/16 11:19 Glucose (Fingerstick) 166mg/dL (70-99) 80mg/dL (70-99) 172mg/dL (70-99) Laboratory Tests Test 12/14/16 13:09 12/14/16 17:40 12/15/16 11:19 Glucose (Fingerstick) 166mg/dL (70-99) 80mg/dL (70-99) 172mg/dL (70-99) Medications Current Medications Aspirin (Children'S Aspirin) 324 mg 1X ONCE PO Last administered on 12/13/16t 18:14; Start 12/13/16 at 18:00; Stop 12/13/16 at 18:06; Status DC Ondansetron HCl (Zofran) 4 mg PRN Q8HRS PRN IV NAUSEA/VOMITING; Start 12/13/16 at 18:30; Stop 12/14/16 at 18:29; Status DC Morphine Sulfate 2 mg PRN Q2HR PRN IV PAIN; Start 12/13/16 at 18:30; Stop 12/14 at 18:29; Status DC Acetaminophen (Tylenol) 650 mg PRN Q4HRS PRN PO FEVER; Start 12/13/16 at 18:30 ; Stop 12/14/16 at 18:29; Status DC Insulin Aspart (Novolog) 0-7 UNITS TIDWMEALS SQ Last administered on 12/14/16 12:00; Start 12/14/16 at 08:00 Dextrose 12.5 gm PRN Q15MIN PRN IV SEE COMMENTS; Start 12/13/16 at 18:30 Aspirin (Ecotrin) 81 mg DAILY05 PO ; Start 12/14/16 at 05:00; Stop 12/15/16 at 02:40; Status DC Atorvastatin Calcium (Lipitor) 20 mg QHS PO Last administered on 12/14/16 21: 06; Start 12/13/16 at 21:00 Diltiazem HCl (Cardizem 24hr Cd) 180 mg DAILY PO Last administered on 10:04; Start 12/14/16 at 09:00 Tamsulosin HCl (Flomax) 0.4 mg HS PO Last administered on 12/14/16 21:06; Start 12/13/16 at 21:00 Non-Formulary Medication 300 mg DAILY05 PO ; Start 12/14/16 at 05:00; Stop 12/14 at 13:36; Status DC Glimepiride (Amaryl) 4 mg BID PO Last administered on 12/15/16 10:05; Start at 21:00 Multivitamins/ Calcium (Thera M Plus) 1 tab DAILY PO Last administered on 10:05; Start 12/14/16 at 09:00 Fish Oil (Fish Oil) 1,000 mg BID PO Last administered on 12/15/16 10:05; Start 12/13/16 at 21:00 Lisinopril (Prinivil) 40 mg DAILY PO Last administered on 12/15/16 10:05; Start 12/14/16 at 09:00 Linagliptin (Tradjenta) 5 mg DAILY PO Last administered on 12/15/16 10:05; Start 12/14/16 at 09:00 Regadenoson (Lexiscan) 0.4 mg 1X ONCE IV Last administered on 12/14/16 09:42 ; Start 12/14/16 at 08:15; Stop 12/14/16 at 08:16; Status DC Aspirin (Ecotrin) 81 mg DAILY PO Last administered on 2/13/17at 10:06; Start at 09:00 Active Scripts Active Reported Cardizem Cd (Diltiazem Hcl) 180 Mg Cap.er.24h 180 Mg PO DAILY D3-2000 (Cholecalciferol (Vitamin D3)) 2,000 Unit Capsule 5,000 Unit PO Quinapril Hcl 40 Mg Tablet 1 Tab PO DAILY Aspirin Ec (Aspirin) 81 Mg Tablet.dr 81 Mg PO DAILY05 Januvia (Sitagliptin Phosphate) 100 Mg Tablet 1 Tab PO DAILY Invokana (Canagliflozin) 300 Mg Tablet 300 Mg PO DAILY05 Glimepiride 4 Mg Tablet 1 Tab PO BID Metformin Hcl 1,000 Mg Tablet 1 Tab PO BID Langley 3 Fish Oil Softgel ([place]angley-3 Fatty Acids/Fish Oil) 1 Each Capsule.dr 1 Each PO BID Multi-Day Vitamins (Multivitamin) 1 Each Tablet 1 Tab PO BID Tamsulosin Hcl 0.4 Mg Cap.er.24h 0.4 Mg PO HS Atorvastatin Calcium 20 Mg Tablet 20 Mg PO DAILY Vitals/I & O Vital Sign - Last 24 Hours 12/14/16 12/14/16 12/14/16 12/14/16 13:45 13:46 15:00 19:48 Temp 98.0 98.0 98.0 98.0 Pulse 85 85 84 82 Resp 18 18 B/P 110/60 110/60 133/72 126/54 Pulse Ox 96 97 O2 Delivery Room Air Room Air 12/14/16 12/15/16 12/15/16 12/15/16 23:37 03:15 03:33 07:39 Temp 98.0 97.9 97.4 98.0 97.9 97.4 Pulse 70 63 73 Resp 20 20 18 B/P 97/57 85/51 100/54 111/71 Pulse Ox 98 97 98 O2 Delivery Room Air Room Air Room Air 12/15/16 12/15/16 12/15/16 12/15/16 08:30 10:04 10:05 11:14 Temp 98.0 98.0 Pulse 73 73 66 Resp 20 B/P 111/71 111/71 113/73 Pulse Ox 97 O2 Delivery Room Air Room Air Intake and Output 12/14/16 12/14/16 12/15/16 15:00 23:00 07:00 Intake Total 700 ml 240 ml Balance 700 ml 240 ml ASHLEE CLEVELAND MD Dec 15, 2016 12:49
[2016-12-15] MEDS ORDERED: AMIO200T2 PO ×2 (13:03→13:04)
--- NOTE | 2016-12-15 14:11 | PDOC3 ---
Discharge Summary [facility] Date of Admission: Dec 13, 2016 Discharge Date: Dec 15, 2016 Admitting Diagnosis chest pain Diabetes-Type II, High Cholesterol, Hypertension Problems: Final Diagnosis Problems Medical Problems: (1) Arrhythmia Status: Acute (2) Arrhythmia Status: Acute (3) Chest pain Status: Acute (4) Elevated troponin Status: Acute (5) Elevated troponin I level Status: Acute CONSULTS card Brief Hospital Course Mr. Hines is a 56 old M ,comes for chest pain, with SVT. CE neg. MPI echo neg dc home with amiodarone. dc time 35min General: Alert, Oriented X3 Heart: Regular rate, Normal S1, Normal S2 Lungs: Clear, Wheezing Abdomen: Normal bowel sounds, Soft Patient History: Family history: Cardiovascular disease (situation) 33 FATHER Family history: Diabetes mellitus (situation) 33 FATHER 32 MOTHER Family history: Hypertension (situation) 33 FATHER Problems: Disposition home CONDITION AT DISCHARGE: Improved, Stable Diet cardiac Scheduled Amiodarone Hcl (Amiodarone Hcl) 1 TAB PO DAILY (Reported) Amiodarone Hcl (Amiodarone Hcl) 2 TAB PO BID (Reported) Aspirin (Aspirin Ec) 81 MG PO DAILY05 (Reported) Atorvastatin Calcium (Atorvastatin Calcium) 20 MG PO DAILY (Reported) Canagliflozin (Invokana) 300 MG PO DAILY05 (Reported) Glimepiride (Glimepiride) 1 TAB PO BID (Reported) Metformin Hcl (Metformin Hcl) 1 TAB PO BID (Reported) Multivitamin (Multi-Day Vitamins) 1 TAB PO BID (Reported) Ulysses-3 Fatty Acids/Fish Oil (Ulysses 3 Fish Oil Softgel) 1 EACH PO BID (Reported ) Quinapril Hcl (Quinapril Hcl) 1 TAB PO DAILY (Reported) Sitagliptin Phosphate (Januvia) 1 TAB PO DAILY (Reported) Tamsulosin Hcl (Tamsulosin Hcl) 0.4 MG PO HS (Reported) Miscellaneous Medications Cholecalciferol (Vitamin D3) (D3-2000) 5,000 UNIT PO (Reported) Discontinued Medications Diltiazem Hcl (Cardizem Cd) 180 MG PO DAILY (Reported) HAILEY TINSLEY MD Dec 15, 2016 14:11
== END 2016-12-15 13:30 | disposition home or self-care (01) | DRG 309 ==
LOC: ER 14:04 → 2 NORTH 18:17
PROVIDERS: ADMIT Internal Medicine; ATTEND Internal Medicine
DX: I47.1 Supraventricular tachycardia (principal); I24.8 Other forms of acute ischemic heart disease; E11.9 Type 2 diabetes mellitus without complications; E78.00 Pure hypercholesterolemia, unspecified; E78.5 Hyperlipidemia, unspecified; R55 Syncope and collapse; I10 Essential (primary) hypertension; N40.0 Benign prostatic hyperplasia without lower urinary tract symptoms; Z82.49 Family history of ischemic heart disease and other diseases of the circulatory system; Z83.3 Family history of diabetes mellitus; Z87.891 Personal history of nicotine dependence; Z79.82 Long term (current) use of aspirin
CPT/HCPCS: 36415; 71020; 78452; 80048; 82947; 83735; 84443; 84484; 85027; 93005; 93017; 96374; 96375; 96376; A9500; J1815; J2785; 99285-25

== ENCOUNTER 2018-09-22 20:05 | Emergency (ER) | payer OTHER ==
[~2018-09-22] VITALS: Ht 180.3 cm; Wt 85.7 kg
[~2018-09-22 20:05] MED LIST changes: +AMIO200T4 PO; +ASPI-612 PO; -ASPI81TA9 PO; -METF10002 PO; +METF10007 PO; +QUIN40TA16 PO; -QUIN40TA7 PO
[2018-09-22] MEDS ORDERED: DULA1.5P SQ (20:44)
[2018-09-22 21:59] LABS: BASO # 0.1 x10^3/uL (0.0-0.2); BASO % 0 % (0-3); EOS # 0.1 x10^3/uL (0.0-0.7); EOS % 1 % (0-3); HEMATOCRIT 37.6 % (39.0-53.0); HEMOGLOBIN 12.7 g/dL (13.0-17.5); LYMPH # 2.3 x10^3/uL (1.0-4.8); LYMPH % 19 % (24-48); MEAN CORPUSCULAR HEMOGLOBIN 29 pg (25-35); MEAN CORPUSCULAR HGB CONC 34 g/dL (31-37); MEAN CORPUSCULAR VOLUME 85 fL (79-100); MONO # 0.9 x10^3/uL (0.0-1.1); MONO % 7 % (0-9); NEUT # 9.3 x10^3uL (1.8-7.7); NEUT % 73 % (31-73); PLATELET COUNT 251 x10^3/uL (140-400); RED BLOOD COUNT 4.44 x10^6/uL (4.30-5.70); RED CELL DISTRIBUTION WIDTH 15.3 % (11.5-14.5); WHITE BLOOD COUNT 12.7 x10^3/uL (4.0-11.0)
[2018-09-22 22:02] LABS: BILIRUBIN,URINE SMALL (NEG); CLARITY,URINE CLEAR; COLOR,URINE YELLOW; NITRITE,URINE NEGATIVE (NEG); PROTEIN,URINE 30 mg/dL (NEG-TRACE); UROBILINOGEN,URINE 0.2 mg/dL (0.2 mg/dL)
--- NOTE | 2018-09-22 22:06 | PHYS DOC ---
Past Medical History Past Medical History: Arrhythmia, Diabetes-Type II, High Cholesterol, Hypertension, Other Additional Past Medical Histor: bph,SVT Past Surgical History: Other Additional Past Surgical Histo: circumcision, r eye,CARDIAC CATH Alcohol Use: None Drug Use: None Adult General Chief Complaint Chief Complaint: TARRY STOOL HPI HPI Patient is a 57 year old male who presents with dark tarry stool. This started this morning. He had only had one episode of this. Patient ate fast food yesterday and became sick with nausea and vomiting yesterday. There was no blood or coffee ground emesis. Patient denies any current abdominal pain. Denies any chest pain. Denies any bruising. Denies being on any blood thinners. Patient did not take any twec-xsm-[id number] remedies for the nausea and vomiting. No Pepto-Bismol.[] Review of Systems Review of Systems Constitutional: Denies fever or chills [] Eyes: Denies change in visual acuity, redness, or eye pain [] HENT: Denies nasal congestion or sore throat [] Respiratory: Denies cough or shortness of breath [] Cardiovascular: No additional information not addressed in HPI [] GI: Denies abdominal pain, nausea, vomiting, bloody stools or diarrhea [] : Denies dysuria or hematuria [] Musculoskeletal: Denies back pain or joint pain [] Integument: Denies rash or skin lesions [] Neurologic: Denies headache, focal weakness or sensory changes [] Endocrine: Denies polyuria or polydipsia [] All other systems were reviewed and found to be within normal limits, except as documented in this note. Allergies Allergies Allergies Coded Allergies Type Severity Reaction Last Updated Verified No Known Drug Allergies 03/16/14 No Physical Exam Physical Exam Constitutional: Well developed, well nourished, no acute distress, non-toxic appearance. [] HENT: Normocephalic, atraumatic, bilateral external ears normal, oropharynx moist, no oral exudates, nose normal. [] Eyes: PERRLA, EOMI, conjunctiva normal, no discharge. [] Neck: Normal range of motion, no tenderness, supple, no stridor. [] Cardiovascular:Heart rate regular rhythm, no murmur [] Lungs & Thorax: Bilateral breath sounds clear to auscultation [] Abdomen: Bowel sounds normal, soft, no tenderness, no masses, no pulsatile masses. Rectal exam performed showed no fissures, no gross bleeding, no external hemorrhoids. Dark brown stool was obtained and placed on the Hemoccult card and sent to lab[] Skin: Warm, dry, no erythema, no rash. [] Back: No tenderness, no CVA tenderness. [] Extremities: No tenderness, no cyanosis, no clubbing, ROM intact, no edema. [] Neurologic: Alert and oriented X 3, normal motor function, normal sensory function, no focal deficits noted. [] Psychologic: Affect normal, judgement normal, mood normal. [] Current Patient Data Vital Signs Vital Signs Date Time Temp Pulse Resp B/P (MAP) Pulse Ox O2 Delivery O2 Flow Rate FiO2 09/22/18 20:22 97.8 104 16 126/80 (95) 98 Room Air 97.8 Lab Values Laboratory Tests Test 09/22/18 20:55 09/22/18 21:05 09/22/18 21:45 Urine Collection Type Unknown Urine Color Yellow Urine Clarity Clear Urine pH 5.0 Urine Specific [place] >=1.030 Urine Protein 30 mg/dL (NEG-TRACE) Urine Glucose (UA) >=1000 mg/dL (NEG) Urine Ketones (Stick) Trace mg/dL (NEG) Urine Blood Negative (NEG) Urine Nitrite Negative (NEG) Urine Bilirubin Small (NEG) Urine Urobilinogen Dipstick 0.2 mg/dL (0.2 mg/dL) Urine Leukocyte Esterase Negative (NEG) Urine RBC 0 /HPF (0-2) Urine WBC Occ /HPF (0-4) Urine Squamous Epithelial Cells None /LPF Urine Bacteria 0 /HPF (0-FEW) Urine Hyaline Casts Moderate /HPF Urine Mucus Mod /LPF White Blood Count 12.7 x10^3/uL (4.0-11.0) H Red Blood Count 4.44 x10^6/uL (4.30-5.70) Hemoglobin 12.7 g/dL (13.0-17.5) L Hematocrit 37.6 % (39.0-53.0) L Mean Corpuscular Volume 85 fL (79-100) Mean Corpuscular Hemoglobin 29 pg (25-35) Mean Corpuscular Hemoglobin Concent 34 g/dL (31-37) Red Cell Distribution Width 15.3 % (11.5-14.5) H Platelet Count 251 x10^3/uL (140-400) Neutrophils (%) (Auto) 73 % (31-73) Lymphocytes (%) (Auto) 19 % (24-48) L Monocytes (%) (Auto) 7 % (0-9) Eosinophils (%) (Auto) 1 % (0-3) Basophils (%) (Auto) 0 % (0-3) Neutrophils # (Auto) 9.3 x10^3uL (1.8-7.7) H Lymphocytes # (Auto) 2.3 x10^3/uL (1.0-4.8) Monocytes # (Auto) 0.9 x10^3/uL (0.0-1.1) Eosinophils # (Auto) 0.1 x10^3/uL (0.0-0.7) Basophils # (Auto) 0.1 x10^3/uL (0.0-0.2) Prothrombin Time 13.3 SEC (11.7-14.0) Prothrombin Time INR 1.1 (0.8-1.1) Sodium Level 142 mmol/L (136-145) Potassium Level 3.5 mmol/L (3.5-5.1) Chloride Level 105 mmol/L (98-107) Carbon Dioxide Level 26 mmol/L (21-32) Anion Gap 11 (6-14) Blood Urea Nitrogen 33 mg/dL (8-26) H Creatinine 1.5 mg/dL (0.7-1.3) H Estimated GFR (Cockcroft-Gault) 58.0 BUN/Creatinine Ratio 22 (6-20) H Glucose Level 250 mg/dL (70-99) H Calcium Level 9.4 mg/dL (8.5-10.1) Total Bilirubin 0.4 mg/dL (0.2-1.0) Aspartate Amino Transferase (AST) 12 U/L (15-37) L Alanine Aminotransferase (ALT) 29 U/L (16-63) Alkaline Phosphatase 73 U/L (46-116) Total Protein 6.8 g/dL (6.4-8.2) Albumin 3.6 g/dL (3.4-5.0) Albumin/Globulin Ratio 1.1 (1.0-1.7) Stool Occult Blood Negative (NEG) Laboratory Tests 09/22/18 21:05 Laboratory Tests 09/22/18 21:05 EKG EKG EKG shows normal sinus rhythm, no ST elevation. Normal axis, QTC of 459 ms.[] Radiology/Procedures Radiology/Procedures Acute abdominal series did not show any abnormalities.[] Course & Med Decision Making Course & Med Decision Making Pertinent Labs and Imaging studies reviewed. (See chart for details) ED course: Patient arrived, was placed in the common tolerated exam well. Patient continued stable during his emergency department stay. After the return of lab and imaging findings patient and family were informed of them, all questions were answered, and patient was discharged in improved condition. Medical decision making: Patient's Hemoccult was negative's do not see any evidence of GI bleed. Patient's BUN/creatinine were elevated, this may be due to the nausea and vomiting that he had yesterday. Patient is mildly anemic, but this is seen only in isolation, and appears to be hemodynamically stable.[] Dragon Disclaimer Dragon Disclaimer This electronic medical record was generated, in whole or in part, using a voice recognition dictation system. Departure Departure Impression: Primary Impression: Black stool Disposition: HOME, SELF-CARE Condition: GOOD Referrals: BURKE GARCIA MD (PCP) Follow-up in 2 days Patient Instructions: Stool Examination Additional Instructions: Drink plenty of fluids. Avoid beets, iron, and Pepto-Bismol. These may all make your stool black in color. Avoid any anti-inflammatories such as aspirin, ibuprofen, and naproxen for the next 5 days. Follow-up with your regular doctor in 2 days. Return to the emergency department if continued nausea and vomiting, bright red blood from her rectum, or any other concerns. Scripts Metoclopramide Hcl (REGLAN) 10 Mg Tablet 10 MG PO QIDACHS, #30 TAB 0 Refills Prov: ABEL ROBLEDO DO 09/22/18 ABEL ROBLEDO DO Sep 22, 2018 22:06
[2018-09-22 22:07] LABS: CALCIUM 9.4 mg/dL (8.5-10.1); CREATININE 1.5 mg/dL (0.7-1.3); POTASSIUM 3.5 mmol/L (3.5-5.1)
[2018-09-22 22:08] LABS: PROTHROMBIN TIME PATIENT 13.3 SEC (11.7-14.0)
[2018-09-22 22:10] LABS: BACTERIA,URINE 0 /HPF (0-FEW); HYALINE CASTS, URINE MODERATE /HPF; RBC,URINE 0 /HPF (0-2); WBC,URINE OCC /HPF (0-4)
[2018-09-22 22:13] LABS: ALBUMIN 3.6 g/dL (3.4-5.0); ALBUMIN/GLOBULIN RATIO 1.1 (1.0-1.7); TOTAL BILIRUBIN 0.4 mg/dL (0.2-1.0); TOTAL PROTEIN 6.8 g/dL (6.4-8.2)
[2018-09-22 22:18] LABS: FECAL OB PT NEGATIVE (NEG)
--- NOTE | 2018-09-22 22:20 | RAD ---
Indication: GI bleed TECHNIQUE: Upright and supine views of the abdomen and pelvis with AP chest. COMPARISON: None FINDINGS: Heart is normal in size. Lungs are clear. No pneumothorax or effusion. Visualized bony thorax within normal limits. No evidence of pneumoperitoneum. No abnormally dilated bowel loops or air-fluid levels. Visualized bones are within normal limits. IMPRESSION: No acute findings. Electronically signed by: Jagdeep Colon DO (09/22/2018 10:17 PM) [facility]
[2018-09-22] MEDS ORDERED: METO10TA81 PO (22:34)
[2018-09-22 22:58] VITALS: BP 142/64
--- NOTE | 2018-09-23 07:29 | EKG ---
[facility] [address] [place] [id number] Test Date: 2018-09-22 Test Time: 22:14:15 Pat Name: RENUKA PIERCE Department: Room: Gender: M [employer]ings Drafter: : 1960 Requested By: ABEL ROLBEDO Order Number: [id number] Reading MD: Bay Weber Measurements Intervals [place] Rate: 89 P: 6 MS: 140 QRS: 11 QRSD: 86 T: 134 QT: 376 QTc: 458 Interpretive Statements SINUS RHYTHM QRS(T) CONTOUR ABNORMALITY CANNOT RULE OUT ANTEROSEPTAL MYOCARDIAL DAMAGE T ABNORMALITY IN LATERAL LEADS ABNORMAL ECG Electronically Signed On 09-27-2018 10:50:49 [employer]URNER by Bay Weber
== END 2018-09-22 23:20 | disposition home or self-care (01) ==
LOC: ER 20:05
DX: K92.1 Melena (principal); R11.2 Nausea with vomiting, unspecified; R69 Illness, unspecified; I10 Essential (primary) hypertension; E78.00 Pure hypercholesterolemia, unspecified; E11.9 Type 2 diabetes mellitus without complications; N40.0 Benign prostatic hyperplasia without lower urinary tract symptoms
CPT/HCPCS: 36415; 74022; 80053; 81001; 82274; 85025; 85610; 86850; 86900; 86901; 93005; 99284-25

== ENCOUNTER 2018-11-07 12:39 | Emergency (ER) | payer OTHER ==
[~2018-11-07] VITALS: Ht 180.3 cm; Wt 86.2 kg
[~2018-11-07 12:39] MED LIST changes: +DULA1.5P SQ; +METO10TA81 PO
[2018-11-07] MEDS ORDERED: PHENYLEPHRINE in 0.9% NACL PF 1 MG/10 ML SYRINGE. IV STA (12:43)
[2018-11-07] MEDS ORDERED: LIDOCAINE 2% 20 ML VIAL. IJ ONE (12:45)
[2018-11-07] MEDS ORDERED: ONDANSETRON ODT 4 MG TAB.RAPDIS. PO ONE (13:00)
[2018-11-07] MEDS ORDERED: oxyCODONE/APAP 5/325 1 TAB TABLET PO ONE (13:00)
[2018-11-07 13:39] LABS: BILIRUBIN,URINE NEGATIVE (NEG); CLARITY,URINE CLEAR; COLOR,URINE YELLOW; NITRITE,URINE NEGATIVE (NEG); PROTEIN,URINE NEGATIVE (NEG-TRACE); UROBILINOGEN,URINE 0.2 mg/dL (0.2 mg/dL)
[2018-11-07 13:46] LABS: BASO # 0.1 x10^3/uL (0.0-0.2); BASO % 1 % (0-3); EOS # 0.1 x10^3/uL (0.0-0.7); EOS % 1 % (0-3); HEMATOCRIT 38.1 % (39.0-53.0); HEMOGLOBIN 12.9 g/dL (13.0-17.5); LYMPH # 1.6 x10^3/uL (1.0-4.8); LYMPH % 15 % (24-48); MEAN CORPUSCULAR HEMOGLOBIN 28 pg (25-35); MEAN CORPUSCULAR HGB CONC 34 g/dL (31-37); MEAN CORPUSCULAR VOLUME 84 fL (79-100); MONO # 0.6 x10^3/uL (0.0-1.1); MONO % 5 % (0-9); NEUT # 8.6 x10^3uL (1.8-7.7); NEUT % 79 % (31-73); PLATELET COUNT 212 x10^3/uL (140-400); RED BLOOD COUNT 4.56 x10^6/uL (4.30-5.70); RED CELL DISTRIBUTION WIDTH 15.3 % (11.5-14.5)
[2018-11-07 13:50] LABS: PROTHROMBIN TIME PATIENT 13.4 SEC (11.7-14.0)
[2018-11-07 13:53] LABS: CALCIUM 9.2 mg/dL (8.5-10.1); CREATININE 1.1 mg/dL (0.7-1.3); GFR 82.6; POTASSIUM 3.6 mmol/L (3.5-5.1)
[2018-11-07 13:55] LABS: BACTERIA,URINE 0 /HPF (0-FEW); RBC,URINE 0 /HPF (0-2); WBC,URINE 0 /HPF (0-4)
[2018-11-07 13:56] VITALS: BP 167/84
[2018-11-07 13:59] LABS: ALBUMIN 3.1 g/dL (3.4-5.0); ALBUMIN/GLOBULIN RATIO 0.9 (1.0-1.7); TOTAL BILIRUBIN 0.4 mg/dL (0.2-1.0); TOTAL PROTEIN 6.6 g/dL (6.4-8.2)
--- NOTE | 2018-11-07 15:58 | PHYS DOC ---
Past Medical History Past Medical History: Arrhythmia, Diabetes-Type II, High Cholesterol, Hypertension, Other Additional Past Medical Histor: bph,SVT Past Surgical History: Other Additional Past Surgical Histo: circumcision, r eye,CARDIAC CATH Alcohol Use: None Drug Use: None Adult General Chief Complaint Chief Complaint: PROLONGED ERECTION HPI HPI Patient is a 58 year old male presenting with a prolonged erection 9 hours he took Viagra on Thursday night he said At 3 AM to urinate he had an erection and he could not like O down it would not go down he was having increasing pain so he came to the emergency room this has never happened to him before since history into the emergency room wearing tight jeans actually has helped somewhat is slowly going down now. Symptoms are moderate improving with time no other alleviating factors Review of Systems Review of Systems Constitutional: Denies fever or chills [] GI: Denies abdominal pain, nausea, vomiting, bloody stools or diarrhea [] : Denies dysuria or hematuria [] Musculoskeletal: Denies back pain or joint pain [] Integument: Denies rash or skin lesions [] All other systems were reviewed and found to be within normal limits, except as documented in this note. Current Medications Current Medications Current Medications Medications (Trade) Dose Ordered Sig/Grant Start Time Stop Time Status Last Admin Dose Admin Lidocaine HCl 20 ml 1X ONCE 11/07/18 12:45 11/07/18 12:48 DC Ondansetron HCl (Zofran Odt) 4 mg 1X ONCE 11/07/18 13:00 11/07/18 13:03 DC 11/07/18 13:25 4 MG Oxycodone/ Acetaminophen (Percocet 5/325) 2 tab 1X ONCE 11/07/18 13:00 11/07/18 13:03 DC 11/07/18 13:26 2 TAB Phenylephrine HCl (PHENYLEPHRINE in 0.9% NACL PF) 1 mg 1X STAT 11/07/18 12:43 11/07/18 12:47 DC Allergies Allergies Allergies Coded Allergies Type Severity Reaction Last Updated Verified No Known Drug Allergies 03/16/14 No Physical Exam Physical Exam Constitutional: Well developed, well nourished, no acute distress, non-toxic appearance. [] HENT: Normocephalic, atraumatic, bilateral external ears normal, oropharynx moist, no oral exudates, nose normal. [] Eyes: PERRLA, EOMI, conjunctiva normal, no discharge. [] Neck: Normal range of motion, no tenderness, supple, no stridor. [] Pulmonary: Normal respiratory effort no increased work of breathing no obvious chest wall trauma Abdomen: Bowel sounds normal, soft, no tenderness, no masses, no pulsatile masses. [] : There is the penis that is actually not fully] is somewhat soft to palpation actually he says it is slightly larger than he is used to. When I reexamined it one hour later he was completely detumesced Skin: Warm, dry, no erythema, no rash. [] Extremities: No tenderness, no cyanosis, no clubbing, ROM intact, no edema. [] Neurologic: Alert and oriented X 3, normal motor function, normal sensory function, no focal deficits noted. [] Psychologic: Affect normal, judgement normal, mood normal. [] Current Patient Data Vital Signs Vital Signs Date Time Temp Pulse Resp B/P (MAP) Pulse Ox O2 Delivery O2 Flow Rate FiO2 11/07/18 13:56 74 16 167/84 (111) 95 Room Air 11/07/18 12:50 98.2 98.2 Lab Values Laboratory Tests Test 11/07/18 13:15 11/07/18 13:20 Urine Collection Type Unknown Urine Color Yellow Urine Clarity Clear Urine pH 6.0 Urine Specific [place] 1.015 Urine Protein Negative mg/dL (NEG-TRACE) Urine Glucose (UA) >=1000 mg/dL (NEG) Urine Ketones (Stick) Negative mg/dL (NEG) Urine Blood Negative (NEG) Urine Nitrite Negative (NEG) Urine Bilirubin Negative (NEG) Urine Urobilinogen Dipstick 0.2 mg/dL (0.2 mg/dL) Urine Leukocyte Esterase Negative (NEG) Urine RBC 0 /HPF (0-2) Urine WBC 0 /HPF (0-4) Urine Bacteria 0 /HPF (0-FEW) White Blood Count 11.0 x10^3/uL (4.0-11.0) Red Blood Count 4.56 x10^6/uL (4.30-5.70) Hemoglobin 12.9 g/dL (13.0-17.5) L Hematocrit 38.1 % (39.0-53.0) L Mean Corpuscular Volume 84 fL (79-100) Mean Corpuscular Hemoglobin 28 pg (25-35) Mean Corpuscular Hemoglobin Concent 34 g/dL (31-37) Red Cell Distribution Width 15.3 % (11.5-14.5) H Platelet Count 212 x10^3/uL (140-400) Neutrophils (%) (Auto) 79 % (31-73) H Lymphocytes (%) (Auto) 15 % (24-48) L Monocytes (%) (Auto) 5 % (0-9) Eosinophils (%) (Auto) 1 % (0-3) Basophils (%) (Auto) 1 % (0-3) Neutrophils # (Auto) 8.6 x10^3uL (1.8-7.7) H Lymphocytes # (Auto) 1.6 x10^3/uL (1.0-4.8) Monocytes # (Auto) 0.6 x10^3/uL (0.0-1.1) Eosinophils # (Auto) 0.1 x10^3/uL (0.0-0.7) Basophils # (Auto) 0.1 x10^3/uL (0.0-0.2) Prothrombin Time 13.4 SEC (11.7-14.0) Prothrombin Time INR 1.1 (0.8-1.1) Sodium Level 140 mmol/L (136-145) Potassium Level 3.6 mmol/L (3.5-5.1) Chloride Level 102 mmol/L (98-107) Carbon Dioxide Level 29 mmol/L (21-32) Anion Gap 9 (6-14) Blood Urea Nitrogen 8 mg/dL (8-26) Creatinine 1.1 mg/dL (0.7-1.3) Estimated GFR (Cockcroft-Gault) 82.6 BUN/Creatinine Ratio 7 (6-20) Glucose Level 300 mg/dL (70-99) H Calcium Level 9.2 mg/dL (8.5-10.1) Total Bilirubin 0.4 mg/dL (0.2-1.0) Aspartate Amino Transferase (AST) 39 U/L (15-37) H Alanine Aminotransferase (ALT) 41 U/L (16-63) Alkaline Phosphatase 86 U/L (46-116) Total Protein 6.6 g/dL (6.4-8.2) Albumin 3.1 g/dL (3.4-5.0) L Albumin/Globulin Ratio 0.9 (1.0-1.7) L Laboratory Tests 11/07/18 13:20 Laboratory Tests 11/07/18 13:20 EKG EKG [] Radiology/Procedures Radiology/Procedures [] Course & Med Decision Making Course & Med Decision Making Pertinent Labs and Imaging studies reviewed. (See chart for details) []58-year-old male with priapism now resolved just with observation was RE improving when he came to the emergency room and watched him for an hour and a half and on reevaluation he was coming completely detumesced This was likely a viagra affect that is now resolving. Patient was given the phone number for follow-up for urology and was instructed on the importance of no Viagra until seen and cleared by urology. Precautions were discussed she voiced understanding Dragon Disclaimer Dragon Disclaimer This electronic medical record was generated, in whole or in part, using a voice recognition dictation system. Departure Departure Impression: Primary Impression: Elevated blood pressure reading Additional Impression: Priapism Disposition: 01 HOME, SELF-CARE Condition: STABLE Referrals: ELIZABETH CALDERÓN MD Patient Instructions: Priapism Additional Instructions: no viagra until seen by urologist. Problem Qualifiers KRIS HERNANDEZ MD Nov 07, 2018 15:58
== END 2018-11-07 14:24 | disposition home or self-care (01) ==
LOC: ER 12:39
DX: N48.30 Priapism, unspecified (principal); R03.0 Elevated blood-pressure reading, without diagnosis of hypertension; E11.9 Type 2 diabetes mellitus without complications; E78.00 Pure hypercholesterolemia, unspecified; I10 Essential (primary) hypertension
CPT/HCPCS: 36415; 80053; 81001; 85025; 85610; 99283; Q0162

== ENCOUNTER → 2019-02-15 | Outpatient (CLI) | payer OTHER ==
--- NOTE | 2019-02-15 16:27 | RAD ---
CHEST PA LATERAL History: Wheezing Comparison: 12/13/2016 two-view chest x-ray exam. Findings: The cardiomediastinal silhouette is normal. Pulmonary vasculature is normal. The lungs are clear. No pleural effusion or pneumothorax is seen. There is no acute bone abnormality. IMPRESSION: No acute cardiopulmonary process. Electronically signed by: Augusto Leal MD (02/15/2019 4:24 PM) [id number]
== END | disposition home or self-care (01) ==
LOC: RAD 15:32
PROVIDERS: ATTEND Internal Medicine Critical Care Medicine
DX: R06.2 Wheezing (principal)
CPT/HCPCS: 71046

== ENCOUNTER → 2020-10-30 | Outpatient (CLI) | payer OTHER ==
[~2020-10-30] MED LIST changes: -AMIO200T4 PO; +AMIO200T6 PO; -ASPI-612 PO; +ASPI-886 PO; -GLIM4TAB2 PO; +GLIM4TAB8 PO
--- NOTE | 2020-10-30 13:20 | CARD ---
MR#: [id number] Date of Study: 10/30/2020 Ordering Physician: EVELYN WEINSTEIN, Referring Physician: EVELYN WEINSTEIN, Tech: Cira Sargent [facility] APPROVED REPORT EXAM: Two-dimensional and M-mode echocardiogram with Doppler and color Doppler. Other Information Quality : GoodHR: 70bpm Rhythm : NSR INDICATION Hypertension/HCVD RISK FACTORS Hypertension Hyperlipidemia Diabetes 2D DIMENSIONS RVDd3.6 (2.9-3.5cm)Left Atrium(2D)4.6 (1.6-4.0cm) IVSd1.3 (0.7-1.1cm)Aortic Root(2D)3.2 (2.0-3.7cm) LVDd5.2 (3.9-5.9cm)LVOT Diameter2.4 (1.8-2.4cm) PWd1.3 (0.7-1.1cm)LVDs3.3 (2.5-4.0cm) FS (%) 36.2 %SV84.9 ml LVEF(%)65.5 (>50%) Aortic Valve AoV Peak Bertrand.160.1cm/sAoV VTI32.3cm AO Peak GR.10.2mmHgLVOT Peak Bertrand.84.5cm/s AO Mean GR.5mmHgAVA (VMAX)2.44cm2 Mitral Valve MV E Pkgepbuw77.0cm/sMV DECEL [id number] MV A Udzinymg95.5cm/sE/A Ratio0.7 Pulmonary Valve PV Peak Ffupokdd118.3cm/s Tricuspid Valve TR P. Mcxhthrg457lu/sTR Peak Gr.15mmHg Pulmonary Vein S1 Opgywrit98.2cm/sD2 Qujcajip34.7cm/s PVa [id number] LEFT VENTRICLE The left ventricle is normal size. There is borderline to mild concentric left ventricular hypertroph y. The left ventricular systolic function is normal. Estimated ejection fraction 55-60%. There is nor mal LV segmental wall motion. Transmitral Doppler flow pattern is Grade I-abnormal relaxation pattern . RIGHT VENTRICLE The right ventricle is normal size. There is normal right ventricular wall thickness. The right ventr icular systolic function is normal. ATRIA The left atrium is mildly dilated. The right atrium size is normal. The interatrial septum is intact with no evidence for an atrial septal defect or patent foramen ovale as noted on 2-D or Doppler imagi ng. AORTIC VALVE The aortic valve is normal in structure and function. Doppler and Color Flow revealed no significant aortic regurgitation. There is no significant aortic valvular stenosis. MITRAL VALVE The mitral valve is normal in structure and function. There is no evidence of mitral valve prolapse. There is no mitral valve stenosis. Doppler and Color-flow revealed mild mitral regurgitation. TRICUSPID VALVE The tricuspid valve is normal in structure and function. Doppler and Color Flow revealed trace tricus pid regurgitation. Estimated PAP 18 mmHg. PULMONIC VALVE The pulmonary valve is normal in structure and function. Doppler and Color Flow revealed no pulmonic valvular regurgitation. GREAT VESSELS The aortic root is normal in size. The ascending aorta is normal in size. The IVC is normal in size a nd collapses >50% with inspiration. PERICARDIAL EFFUSION There is no evidence of significant pericardial effusion. Critical Notification Critical Value: No <Conclusion> The left ventricular systolic function is normal. Estimated ejection fraction 55-60%. There is normal LV segmental wall motion. Transmitral Doppler flow pattern is Grade I-abnormal relaxation pattern. Mild mitral regurgitation. Trace tricuspid regurgitation. Estimated PAP 18 mmHg. There is no evidence of significant pericardial effusion. Signed by : Bay Weber, Electronically Approved : 10/30/2020 13:20:00
== END ==
LOC: ECHO 07:40
PROVIDERS: ATTEND Internal Medicine Cardiovascular Disease
DX: I34.0 Nonrheumatic mitral (valve) insufficiency (principal)
CPT/HCPCS: 93306

== ENCOUNTER 2021-08-06 14:19 | Observation (INO) | payer OTHER ==
[~2021-08-06] VITALS: Ht 177.8 cm; Wt 80.5 kg
[2021-08-06] MEDS ORDERED: ADENOSINE 6 MG/2 ML VIAL. IV ONE ×3 (16:11→16:30)
[2021-08-06 16:36] LABS: BASO # 0.1 x10^3/uL (0.0-0.2); BASO % 1 % (0-3); EOS # 0.1 x10^3/uL (0.0-0.7); EOS % 1 % (0-3); HEMATOCRIT 39.2 % (39.0-53.0); HEMOGLOBIN 13.1 g/dL (13.0-17.5); LYMPH # 2.8 x10^3/uL (1.0-4.8); LYMPH % 22 % (24-48); MEAN CORPUSCULAR HEMOGLOBIN 28 pg (25-35); MEAN CORPUSCULAR HGB CONC 33 g/dL (31-37); MEAN CORPUSCULAR VOLUME 83 fL (79-100); MONO # 1.1 x10^3/uL (0.0-1.1); MONO % 9 % (0-9); NEUT # 8.7 x10^3/uL (1.8-7.7); NEUT % 68 % (31-73); PLATELET COUNT 294 x10^3/uL (140-400); RED BLOOD COUNT 4.75 x10^6/uL (4.30-5.70); RED CELL DISTRIBUTION WIDTH 15.5 % (11.5-14.5); WHITE BLOOD COUNT 12.8 x10^3/uL (4.0-11.0)
[2021-08-06 16:44] LABS: CALCIUM 8.9 mg/dL (8.5-10.1); CREATININE 2.3 mg/dL (0.7-1.3); POTASSIUM 4.1 mmol/L (3.5-5.1)
[2021-08-06 16:45] LABS: BILIRUBIN,URINE MODERATE (NEG); CLARITY,URINE CLOUDY; COLOR,URINE AMBER; NITRITE,URINE NEGATIVE (NEG); PROTEIN,URINE 100 mg/dL (NEG-TRACE)
[2021-08-06 16:50] LABS: ALBUMIN 3.3 g/dL (3.4-5.0); ALBUMIN/GLOBULIN RATIO 0.9 (1.0-1.7); TOTAL BILIRUBIN 0.5 mg/dL (0.2-1.0)
[2021-08-06 16:51] LABS: BARBITURATES NEG (NEG); BENZODIAZEPINES NEG (NEG); CANNABINOIDS NEG (NEG); COCAINE NEG (NEG); HYALINE CASTS, URINE MANY /HPF; METHADONE NEG (NEG); OPIATES NEG (NEG); PHENCYCLIDINE NEG (NEG)
[2021-08-06 16:53] LABS: AMORPHOUS SEDIMENT,UR PRESENT /HPF; BACTERIA,URINE 0 /HPF (0-FEW); RBC,URINE TNTC /HPF (0-2)
--- NOTE | 2021-08-06 16:53 | PHYS DOC ---
Past Medical History Past Medical History: Arrhythmia, Diabetes-Type II, High Cholesterol, Hyp ertension, Other Additional Past Medical Histor: bph,SVT (LIA CERON APRN) Past Surgical History: Other Additional Past Surgical Histo: circumcision, r eye,CARDIAC CATH (LIA CERON APRN) Smoking Status: Never Smoker Alcohol Use: Rarely Drug Use: None (LIA CERON APRN) General Adult EDM: Chief Complaint: DIZZY/LIGHT HEADED HPI: HPI: Patient is a 60 year old male who presents with dizziness, heart palpitations. Patient reports earlier today he felt like he was going to pass out and his heart was racing. Denies chest pain or shortness of breath. Patient reports a history of SVT and states that he was recently taken off his amiodarone. Patient reports he has a history of SVT, diabetes, hypertension, and high cholesterol. (LIA CERON APRN) Review of Systems: Review of Systems: Constitutional: Denies fever or chills. [] Eyes: Denies change in visual acuity. [] HENT: Denies nasal congestion or sore throat. [] Respiratory: Denies cough or shortness of breath. [] Cardiovascular: Denies chest pain or edema. [] GI: Denies abdominal pain, nausea, vomiting, bloody stools or diarrhea. [] : Denies dysuria. [] Musculoskeletal: Denies back pain or joint pain. [] Integument: Denies rash. [] Neurologic: Denies headache, focal weakness or sensory changes. [] Endocrine: Denies polyuria or polydipsia. [] Lymphatic: Denies swollen glands. [] Psychiatric: Denies depression or anxiety. [] (LIA CERON TOOLING INSPECTOR) Heart Score: C/O Chest Pain: No Risk Factors: Risk Factors: DM, Current or recent (<one month) smoker, HTN, HLP, family history of CAD, obesity. Risk Scores: Score 0 - 3: 2.5% MACE over next 6 weeks - Discharge Home Score 4 - 6: 20.3% MACE over next 6 weeks - Admit for Clinical Observation Score 7 - 10: 72.7% MACE over next 6 weeks - Early Invasive Strategies (LIA CERON APRN) Current Medications: Current Medications Medications (Trade) Dose Ordered Sig/Grant Start Time Stop Time Status Last Admin Dose Admin Adenosine (Adenocard) 12 mg 1X ONCE 08/06/21 16:30 08/06/21 16:31 UNV (LIA CERON APRN) Allergies: Allergies: Allergies Coded Allergies Type Severity Reaction Last Updated Verified No Known Drug Allergies 03/16/14 No (LIA CERON APRN) Physical Exam: PE: Constitutional: Well developed, well nourished, no acute distress, non-toxic appearance. [] HENT: Normocephalic, atraumatic, bilateral external ears normal, oropharynx moist, no oral exudates, nose normal. [] Eyes: PERRLA, EOMI, conjunctiva normal, no discharge. [] Neck: Normal range of motion, no tenderness, supple, no stridor. [] Cardiovascular:Heart rate regular rhythm, no murmur [] Lungs & Thorax: Bilateral breath sounds clear to auscultation [] Abdomen: Bowel sounds normal, soft, no tenderness, no masses, no pulsatile masses. [] Skin: Warm, dry, no erythema, no rash. [] Back: No tenderness, no CVA tenderness. [] Extremities: No tenderness, no cyanosis, no clubbing, ROM intact, no edema. [] Neurologic: Alert and oriented X 3, normal motor function, normal sensory funct ion, no focal deficits noted. [] Psychologic: Affect normal, judgement normal, mood normal. [] (LIA CERON APRN) Current Patient Data: Vital Signs: Vital Signs Date Time Temp Pulse Resp B/P (MAP) Pulse Ox O2 Delivery O2 Flow Rate FiO2 08/06/21 15:50 98.9 201 18 113/85 (94) 90 Room Air 98.9 (LIA CERON APRN) EKG: EKG: []Superventricular Tachycardia. HR [address] Katz @1600. Sinus Tachycardia, HR 116BPM. Read by @ 1617 (LIA CERON APRN) Radiology/Procedures: Radiology/Procedures: []EXAM: Chest, single view. HISTORY: Palpitations. COMPARISON: 02/15/2019 FINDINGS: A frontal view of the chest is obtained. There is no infiltrate, pleural effusion or pneumothorax. The heart is normal in size. IMPRESSION: No acute pulmonary finding. Electronically signed by: Valeria Kerr MD (08/06/2021 4:59 PM) [id number] (LIA CERON APRN) Course & Med Decision Making: Course & Med Decision Making Pertinent Labs and Imaging studies reviewed. (See chart for details) [] 60-year-old male who presents with dizziness and heart palpitations. On arrival patient's heart rate was 203 and an in SVT. Patient was denying chest pain or shortness of breath. Had patient perform Valsalva maneuver with no improvement of heart rate. Patient was given 6 mg of adenosine with no change. Patient was then given 12 mg of adenosine which he then converted back to sinus tachycardia, 116 bpm. Advised patient that he would most likely need to be admitted for further observation. Patient is hemodynamically stable at this time. Patient reports that his symptoms have improved. Creatine elevated at 2.3, BUN 20. Patient given NS Bolus. (LIA CERON APRN) Dragon Disclaimer: Dragon Disclaimer: This electronic medical record was generated, in whole or in part, using a voice recognition dictation system. (LIA CERON APRN) Departure Departure Impression: Primary Impression: SVT (supraventricular tachycardia) Additional Impressions: Heart palpitations Dizziness Disposition: ADMITTED INPATIENT Admitting Physician: Aftab Colon (LIA CERON APRN) Condition: STABLE Referrals: AFTAB COLON MD (PCP) Scripts Metoprolol Tartrate (METOPROLOL TARTRATE) 25 Mg Tablet 25 MG PO BID for HTN for 30 Days, #60 TAB 5 Refills Prov: AFTAB COLON MD 08/07/21 Attending Signature I have participated in the care of this patient and I have reviewed and agree with all pertinent clinical information above including history, exam, and recommendations. (BRITTNY MONTAÑO DO) LIA CERON APRN Aug 06, 2021 16:53 BRITTNY MONTAÑO DO Aug 15, 2021 05:57
[2021-08-06 17:00] LABS: AMPHETAMINE/METHAMPHETAMINE NEG (NEG)
--- NOTE | 2021-08-06 17:01 | RAD ---
EXAM: Chest, single view. HISTORY: Palpitations. COMPARISON: 02/15/2019 FINDINGS: A frontal view of the chest is obtained. There is no infiltrate, pleural effusion or pneumo thorax. The heart is normal in size. IMPRESSION: No acute pulmonary finding. Electronically signed by: Valeria Kerr MD (08/06/2021 4:59 PM) [id number]
--- NOTE | 2021-08-06 18:28 | EKG ---
[facility] [address] [place] [address] Test Date: 2021-08-06 Test Time: 15:57:35 Pat Name: RENUKA PIERCE Department: Room: [facility] Gender: M Board Operator: : 1960 Requested By: LIA CERON Order Number: [id number] Reading MD: Bay Weber Measurements Intervals [place] Rate: 203 P: NM: QRS: 31 QRSD: 80 T: 15 QT: 256 QTc: 474 Interpretive Statements SUPRAVENTRICULAR TACHYCARDIA Electronically Signed On 08-08-2021 12:47:55 CDT by Bay Weber
--- NOTE | 2021-08-06 18:29 | EKG ---
[facility] [address] [place] [address] Test Date: 2021-08-06 Test Time: 16:15:42 Pat Name: RENUKA PIERCE Department: Room: [facility] Gender: M Door To Door Sales Representative: : 1960 Requested By: LIA CERON Order Number: [id number] Reading MD: Bay Weber Measurements Intervals [place] Rate: 116 P: 47 [place]: 162 QRS: 34 QRSD: 82 T: 54 QT: 302 QTc: 425 Interpretive Statements SINUS TACHYCARDIA Electronically Signed On 08-08-2021 12:47:35 CDT by Bay Weber
[2021-08-06] MEDS ORDERED: TAMS0.4C97 PO (19:20)
[2021-08-06] MEDS ORDERED: GABA300C18 PO (19:23)
[2021-08-06] MEDS ORDERED: AMLO-186 PO (19:26)
[2021-08-06] MEDS ORDERED: MONT10TA49 PO (19:26)
[2021-08-06 19:36] VITALS: BP 120/71
[2021-08-06] MEDS ORDERED: DEXTROSE 50% 25 GM / 50ML DISP.SYRIN. IV PRN (20:30)
[2021-08-06] MEDS ORDERED: MONTELUKAST SODIUM 10 MG TABLET. PO SCH (21:00)
[2021-08-06] MEDS ORDERED: GABAPENTIN 300 MG CAPSULE. PO SCH (21:00)
[2021-08-06] MEDS ORDERED: NON FORMULARY ITEM (Metformin Hcl 1 TAB) PO SCH (21:00)
[2021-08-06] MEDS: TAMSULOSIN 0.4 MG CAP.ER.24H. PO SCH (21:57)
[2021-08-06 23:01] VITALS: BP 102/54
[2021-08-07 03:14] VITALS: BP 124/64
[2021-08-07 04:45] LABS: BASO % 1 % (0-3); EOS # 0.2 x10^3/uL (0.0-0.7); EOS % 2 % (0-3); HEMATOCRIT 37.1 % (39.0-53.0); HEMOGLOBIN 12.6 g/dL (13.0-17.5); LYMPH # 1.8 x10^3/uL (1.0-4.8); LYMPH % 22 % (24-48); MEAN CORPUSCULAR HEMOGLOBIN 28 pg (25-35); MEAN CORPUSCULAR HGB CONC 34 g/dL (31-37); MEAN CORPUSCULAR VOLUME 82 fL (79-100); MONO # 0.6 x10^3/uL (0.0-1.1); MONO % 8 % (0-9); NEUT # 5.6 x10^3/uL (1.8-7.7); NEUT % 68 % (31-73); PLATELET COUNT 255 x10^3/uL (140-400); RED BLOOD COUNT 4.53 x10^6/uL (4.30-5.70); RED CELL DISTRIBUTION WIDTH 15.6 % (11.5-14.5); WHITE BLOOD COUNT 8.3 x10^3/uL (4.0-11.0)
[2021-08-07] MEDS ORDERED: ASPIRIN ENTERIC COATED 81 MG TABLET.DR. PO SCH ×2 (05:00→09:00)
[2021-08-07 05:45] LABS: ALBUMIN/GLOBULIN RATIO 0.9 (1.0-1.7); CALCIUM 8.3 mg/dL (8.5-10.1); CREATININE 1.6 mg/dL (0.7-1.3); GFR 53.3; MAGNESIUM 1.9 mg/dL (1.8-2.4); POTASSIUM 4.3 mmol/L (3.5-5.1); TOTAL BILIRUBIN 0.6 mg/dL (0.2-1.0); TOTAL PROTEIN 6.4 g/dL (6.4-8.2)
[2021-08-07 05:52] LABS: CHOLESTEROL/HDL RATIO 2.4
[2021-08-07 06:24] VITALS: BP 124/69
[2021-08-07] MEDS: INSULIN LISPRO 300 UNITS/3 ML VIAL. SQ SCH ×2 (08:00→11:53)
[2021-08-07] MEDS: TAMSULOSIN 0.4 MG CAP.ER.24H. PO SCH (08:51)
[2021-08-07] MEDS: ATORVASTATIN CALCIUM 20 MG TABLET PO SCH ×2 (08:51→09:00)
[2021-08-07] MEDS ORDERED: ACETAMINOPHEN 325 MG TABLET. PO PRN (09:00)
[2021-08-07] MEDS ORDERED: LISINOPRIL 20 MG TABLET PO SCH ×2 (09:00)
[2021-08-07] MEDS ORDERED: MULTIVITAMIN with MINERAL TABLET. PO SCH (09:00)
[2021-08-07] MEDS ORDERED: OMEGA-3 FATTY ACIDS/FISH OIL 1,000 MG CAPSULE. PO SCH (09:00)
[2021-08-07] MEDS ORDERED: METOPROLOL TART IMMED RELEASE 25 MG TABLET. PO SCH (10:00)
--- NOTE | 2021-08-07 10:02 | PDOC2 ---
CARMEN BLACKMAN [employer] 08/07/21 1002: CARDIAC CONSULT DATE OF CONSULT Date of Consult DATE: 08/07/21 TIME: 09:48 REASON FOR CONSULT Reason for Consult: SVT REFERRING PHYSICIAN Referring Physician: Jesus SOURCE Source: Chart review, Patient HISTORY OF PRESENT ILLNESS HISTORY OF PRESENT ILLNESS This is a pleasant 60 yo male admitted for complains of palpitations. Reports that he was accompanying his father for errands and started having dizziness and felt palpitations and diaphoretic. Upon arrival in ED he was noted with SVT and treated with adenosine and has been maintating SR since. No chest pain or SOA. He was on amiodarone in the past but was taken off due to thyroid issues. He cuirrently does not have any rate controlling issues. No recent falls or injury. He does drink good amount of caffeinated sodas but no recreational drugs. He was tested positive for Covid-19 07/26 and was just not feeling well but otherwise no distress and has been vaccinated with Moderna 01/2021 PAST MEDICAL HISTORY Cardiovascular: HTN, Hyperlipidemia, Other (PSVT) Renal/: Benign prostatic enlarg. Endocrine: Diabetes PAST SURGICAL HISTORY Past Surgical History: Other (right eye surgery) FAMILY HISTORY Family History: Heart Disease SOCIAL HISTORY Smoke: No ALCOHOL: none Drugs: None Lives: with Family CURRENT MEDICATIONS CURRENT MEDICATIONS Current Medications Medications (Trade) Dose Ordered Sig/Grant Route PRN Reason Start Time Stop Time Status Last Admin Dose Admin Adenosine (Adenocard) 6 mg 1X ONCE IV 08/06/21 16:30 08/06/21 16:31 DC 08/06/21 16:19 Adenosine (Adenocard) 12 mg 1X ONCE IV 08/06/21 16:30 08/06/21 16:31 DC 08/06/21 16:21 Tamsulosin HCl (Flomax) 0.4 mg BID PO 08/06/21 21:00 08/07/21 08:51 Gabapentin (Neurontin) 300 mg HS PO 08/06/21 21:00 08/06/21 21:57 Montelukast Sodium (Singulair) 10 mg HS PO 08/06/21 21:00 08/06/21 21:57 Fish Oil (Fish Oil) 1,000 mg DAILY PO 08/07/21 09:00 08/07/21 08:51 Lisinopril (Prinivil) 40 mg DAILY PO 08/07/21 09:00 08/07/21 08:57 DC 08/07/21 08:51 Multivitamins (Thera M Plus) 1 tab DAILY PO 08/07/21 09:00 08/07/21 08:51 Aspirin (Ecotrin) 81 mg DAILY PO 08/07/21 09:00 08/07/21 08:51 Lisinopril (Prinivil) 20 mg DAILY PO 08/07/21 09:00 08/07/21 09:00 ALLERGIES ALLERGIES: Coded Allergies: No Known Drug Allergies (Unverified , 03/16/14) ROS Review of System 14 point ROS evaluated with pertinent positives noted per HPI PHYSICAL EXAM General: Alert, Oriented X3, Cooperative, No acute distress HEENT: Atraumatic, Mucous membr. moist/pink Lungs: Clear to auscultation, Normal air movement Heart: Regular rate (SR), Normal S1, Normal S2, No murmurs Abdomen: Soft, No tenderness Extremities: No cyanosis, No edema Skin: No breakdown, No significant lesion Neuro: Normal speech, Sensation intact Psych/Mental Status: Mental status NL, Mood NL MUSCULOSKELETAL: Osteoarthritic changes both hands VITALS/I&O VITALS/I&O: Vital Signs Date Time Temp Pulse Resp B/P (MAP) Pulse Ox O2 Delivery O2 Flow Rate FiO2 08/07/21 09:00 92 124/69 08/07/21 06:24 98.8 16 98 Room Air 98.8 I & O 08/06/21 08/06/21 08/07/21 15:00 23:00 07:00 Intake Total 120 ml 800 ml Output Total 1450 ml Balance 120 ml -650 ml LABS Lab: Laboratory Tests Test 08/06/21 16:10 08/06/21 16:35 08/06/21 16:50 08/07/21 04:25 White Blood Count 12.8 x10^3/uL (4.0-11.0) H 8.3 x10^3/uL (4.0-11.0) Red Blood Count 4.75 x10^6/uL (4.30-5.70) 4.53 x10^6/uL (4.30-5.70) Hemoglobin 13.1 g/dL (13.0-17.5) 12.6 g/dL (13.0-17.5) L Hematocrit 39.2 % (39.0-53.0) 37.1 % (39.0-53.0) L Mean Corpuscular Volume 83 fL (79-100) 82 fL (79-100) Mean Corpuscular Hemoglobin 28 pg (25-35) 28 pg (25-35) Mean Corpuscular Hemoglobin Concent 33 g/dL (31-37) 34 g/dL (31-37) Red Cell Distribution Width 15.5 % (11.5-14.5) H 15.6 % (11.5-14.5) H Platelet Count 294 x10^3/uL (140-400) 255 x10^3/uL (140-400) Neutrophils (%) (Auto) 68 % (31-73) 68 % (31-73) Lymphocytes (%) (Auto) 22 % (24-48) L 22 % (24-48) L Monocytes (%) (Auto) 9 % (0-9) 8 % (0-9) Eosinophils (%) (Auto) 1 % (0-3) 2 % (0-3) Basophils (%) (Auto) 1 % (0-3) 1 % (0-3) Neutrophils # (Auto) 8.7 x10^3/uL (1.8-7.7) H 5.6 x10^3/uL (1.8-7.7) Lymphocytes # (Auto) 2.8 x10^3/uL (1.0-4.8) 1.8 x10^3/uL (1.0-4.8) Monocytes # (Auto) 1.1 x10^3/uL (0.0-1.1) 0.6 x10^3/uL (0.0-1.1) Eosinophils # (Auto) 0.1 x10^3/uL (0.0-0.7) 0.2 x10^3/uL (0.0-0.7) Basophils # (Auto) 0.1 x10^3/uL (0.0-0.2) 0.0 x10^3/uL (0.0-0.2) Sodium Level 141 mmol/L (136-145) 142 mmol/L (136-145) Potassium Level 4.1 mmol/L (3.5-5.1) 4.3 mmol/L (3.5-5.1) Chloride Level 104 mmol/L (98-107) 105 mmol/L (98-107) Carbon Dioxide Level 26 mmol/L (21-32) 29 mmol/L (21-32) Anion Gap 11 (6-14) 8 (6-14) Blood Urea Nitrogen 20 mg/dL (8-26) 17 mg/dL (8-26) Creatinine 2.3 mg/dL (0.7-1.3) H 1.6 mg/dL (0.7-1.3) H Estimated GFR (Cockcroft-Gault) 35.0 53.3 BUN/Creatinine Ratio 9 (6-20) 11 (6-20) Glucose Level 164 mg/dL (70-99) H 96 mg/dL (70-99) Calcium Level 8.9 mg/dL (8.5-10.1) 8.3 mg/dL (8.5-10.1) L Total Bilirubin 0.5 mg/dL (0.2-1.0) 0.6 mg/dL (0.2-1.0) Aspartate Amino Transferase (AST) 12 U/L (15-37) L 11 U/L (15-37) L Alanine Aminotransferase (ALT) 20 U/L (16-63) 19 U/L (16-63) Alkaline Phosphatase 85 U/L (46-116) 77 U/L (46-116) Total Protein 7.0 g/dL (6.4-8.2) 6.4 g/dL (6.4-8.2) Albumin 3.3 g/dL (3.4-5.0) L 3.0 g/dL (3.4-5.0) L Albumin/Globulin Ratio 0.9 (1.0-1.7) L 0.9 (1.0-1.7) L Urine Collection Type Unknown Urine Color Hellen Urine Clarity Cloudy Urine pH 5.0 (<5.0-8.0) Urine Specific [place] 1.025 (1.000-1.030) Urine Protein 100 mg/dL (NEG-TRACE) Urine Glucose (UA) Negative mg/dL (NEG) Urine Ketones (Stick) Trace mg/dL (NEG) Urine Blood Large (NEG) Urine Nitrite Negative (NEG) Urine Bilirubin Moderate (NEG) Urine Urobilinogen Dipstick 1.0 mg/dL (0.2 mg/dL) Urine Leukocyte Esterase Small (NEG) Urine RBC Tntc /HPF (0-2) Urine WBC 1-4 /HPF (0-4) Urine Amorphous Sediment Present /HPF Urine Bacteria 0 /HPF (0-FEW) Urine Hyaline Casts Many /HPF Urine Mucus Mod /LPF Urine Opiates Screen Neg (NEG) Urine Methadone Screen Neg (NEG) Urine Barbiturates Neg (NEG) Urine Phencyclidine Screen Neg (NEG) Urine Amphetamine/Methamphetamine Neg (NEG) Urine Benzodiazepines Screen Neg (NEG) Urine Cocaine Screen Neg (NEG) Urine Cannabinoids Screen Neg (NEG) Urine Ethyl Alcohol Neg (NEG) SARS-CoV-2 Antigen (Rapid) Negative (NEGATIVE) Magnesium Level 1.9 mg/dL (1.8-2.4) Triglycerides Level 63 mg/dL (0-150) Cholesterol Level 111 mg/dL (0-200) LDL Cholesterol, Calculated 52 mg/dL (0-100) VLDL Cholesterol, Calculated 13 mg/dL (0-40) Non-HDL Cholesterol Calculated 65 mg/dL (0-129) HDL Cholesterol 46 mg/dL (40-60) Cholesterol/HDL Ratio 2.4 Thyroid Stimulating Hormone (TSH) 0.331 uIU/mL (0.358-3.74) L Laboratory Tests 08/06/21 16:10 08/07/21 04:25 Laboratory Tests 08/06/21 16:10 08/07/21 04:25 ASSESSMENT/PLAN ASSESSMENT/PLAN 1. PSVT: responded with adenosine. Maintaining SR with brief bursts 2. HTN: controlled 3. HLP: home statin 4. DM2 5. Covid-19: tested+ 07/26. vaccinated with moderna on 01/2021 6. CKD3? Recommendations 1. outpt TTE 2. DC norvasc for now and could decrease lisinopril pending BP trend to allow utilization of metoprolol for rate control. 3. Follow up in office Sep 05 at 8:45. Anticipate DC this afternoon 4. He already had MCOT early this yr and SVT burden is low. If PSVT continues to recur then will consider for antiarrhythmics 5. Discuss diet changes particularly cutting back on caffeinated sodas. EVELYN WEINSTEIN MD 08/07/21 1807: CARDIAC CONSULT ASSESSMENT/PLAN ASSESSMENT/PLAN Patient seen and evaluated. I agree with our nurse practitioners assessment and plan. PSVT: responded to adenosine. Maintaining SR HTN: controlled. Holding Norvasc and decreasing lisinopril. Office follow-up as above. HLP: home statin DM2 Covid-19: tested+ 07/26. vaccinated with moderna on 01/2021 CKD CARMEN BLACKMAN APRN Aug 07, 2021 10:02 EVELYN WEINSTEIN MD Aug 07, 2021 18:07
[2021-08-07] MEDS ORDERED: METO25TA4 PO (10:11)
--- NOTE | 2021-08-07 10:12 | DISCH ---
DISCHARGE INSTRUCTIONS Condition on Discharge Condition on Discharge: Stable Activity After Discharge Activity Instructions for Disc: Activity as tolerated Weight Bearing Status after Di: No restrictions Diet after Discharge Diet after Discharge: Cardiac (ADA), Diabetic No Calorie Level Diet Texture: Regular Checks after Discharge Checks after discharge: Check blood press - daily Contacting the DRYohan after DC Call your doctor for: Concerns you may have Follow-Up Follow up with: Dr. Burke Garcia in 5 days Follow Up With: Dr. Rios Treatment/Equipment after DC Adaptive Equipment Issued: None BURKE GARCIA MD Aug 07, 2021 10:12
--- NOTE | 2021-08-07 10:23 | PDOC ---
Provider Note Date of Service: DATE: 08/07/21 TIME: 10:22 Provider Note H&P dictated #[id number] Justifications for Admission Other Justification BURKE GARCIA MD Aug 07, 2021 10:23
[2021-08-07 10:54] VITALS: BP 148/77
--- NOTE | 2021-08-07 11:03 | HP ---
ADMIT DATE: 08/07/2021 This is a combined history and physical and discharge summary. HISTORY OF PRESENT ILLNESS: This is a 60-year-old male who has a history of cardiac arrhythmia and who was on amiodarone, had thyroid problems because of the amiodarone, so it was discontinued recently. The patient started having some palpitations and fast heart rate and dizziness yesterday. He also had some diaphoresis. He was seen in the emergency room and was noted to have supraventricular tachycardia with rate of 190 per minute. He was treated with IV adenosine and was converted to sinus rhythm. The patient did not have any symptoms. Because of the cardiac arrhythmia with changes in medications, the patient was admitted for further evaluation and management. REVIEW OF SYSTEMS: At present time, the patient denies any cold, cough, congestion, chest pains, abdominal pains, fever. The patient recently had COVID-19 infection. He has recovered from it. He is fully vaccinated. He was noted to be COVID-19 positive on 07/26/2021. PAST MEDICAL HISTORY: The patient has a history of diabetes mellitus type 2, hypertension, cardiac arrhythmia, allergic rhinitis, recurrent sinusitis, mixed hyperlipidemia, history of depression, supraventricular tachyarrhythmia in 2017. ALLERGIES: None known any. MEDICATIONS: Reviewed and reconciled. The patient is on amlodipine. FAMILY HISTORY: Mother has diabetes mellitus type 2. SOCIAL HISTORY: No history of alcoholism. No history of drug abuse. The patient is a former smoker. PHYSICAL EXAMINATION: VITAL SIGNS: Temperature 97 degrees Fahrenheit, pulse 104 per minute, respirations 20 per minute, blood pressure 124/64 mmHg. GENERAL: The patient is a middle-aged male who is alert, oriented x 3, and not in acute distress. EYES: Pupils reactive to light. Conjunctivae pale. Sclerae muddy. HENT: Partial exam unremarkable. SKIN: Warm and dry. There is no cyanosis. NECK: Supple. JVP normal. No thyromegaly. Trachea midline. LUNGS: Clear with decreased breath sounds at bases. CARDIOVASCULAR SYSTEM: S1, S2, regular. ABDOMEN: Soft, nontender, no guarding, no rigidity. Bowel sounds present. EXTREMITIES: No edema, no cyanosis, no calf tenderness. CENTRAL NERVOUS SYSTEM: Alert and oriented. LABORATORY FINDINGS: WBC count was 12.8 yesterday and hemoglobin 13.1. Today, WBC count is 8.3, hemoglobin 12.6, platelet count is 294,000. Sodium 141, potassium 4.1, BUN 20 and creatinine 2.3 yesterday. BUN is 17 and creatinine 1.6 today, glucose 164 yesterday and 96 today. TSH 0.331. LDL 52, HDL 46, total cholesterol 111, albumin 3.3 yesterday and 3 today. Urinalysis shows rbc's too numerous to count, bacteria 0, nitrite negative. Urine drug screen is negative. COVID-19 rapid test is negative. Chest x-ray, no acute abnormalities. FINAL DIAGNOSES: 1. Supraventricular tachyarrhythmia. 2. Hypertension. 3. Leukocytosis, reactive. 4. Abnormal TSH, reactive. 5. Diabetes mellitus type 2. 6. Mixed hyperlipidemia, controlled. 7. Allergic rhinitis and sinusitis. PLAN: Consult Dr. Rios for cardiology evaluation and management. The patient is clinically stable. Discussed with cardiology staff. Discontinue amlodipine, start metoprolol 25 mg twice daily. The patient is clinically doing well, discharged today and follow up in the office in 5 days. I have advised him not to go back to work at this time until seen in the office. DISPOSITION: Home. For details regarding discharge orders, please refer to the discharge papers. CONDITION AT THE TIME OF DISCHARGE: Stable. CARLOS HERMOSILLO: Yuki TID: [id number]
--- NOTE | 2021-08-07 13:08 | NUR ---
SS following for discharge planning. SS reviewed pt chart and discussed with pt RN. Pt is from home with spouse and is currently on room air. COVID19 negative. Discharge order on the chart for home with self care.
[2021-08-07 15:00] VITALS: BP 131/69
--- NOTE | 2021-08-07 15:40 | NUR ---
Discharge Note: RENUKA PIERCE [facility] Discharge instructions and discharge home medications reviewed with Patient and a copy given. All questions have been answered and understanding verbalized. The following instructions and handouts were given: metoprolol tartrate, supraventricular tachycardia. Patient discharged to home with self care via wheelchair.
--- NOTE | 2021-08-07 15:54 | CARD ---
MR#: [id number] Date of Study: 08/07/2021 Ordering Physician: CARMEN BLACKMAN, Referring Physician: CARMEN BLACKMAN Tech: Cira Sargent [facility] APPROVED REPORT EXAM: Two-dimensional and M-mode echocardiogram with Doppler and color Doppler. Other Information Quality : GoodHR: 81bpm Rhythm : NSR INDICATION Dyspnea RISK FACTORS Hypertension 2D DIMENSIONS RVDd3.5 (2.9-3.5cm)Left Atrium(2D)4.3 (1.6-4.0cm) IVSd1.1 (0.7-1.1cm)Aortic Root(2D)3.4 (2.0-3.7cm) LVDd5.3 (3.9-5.9cm)LVOT Diameter2.6 (1.8-2.4cm) PWd1.1 (0.7-1.1cm)LVDs3.8 (2.5-4.0cm) FS (%) 28.8 %SV74.3 ml LVEF(%)55.0 (>50%) Aortic Valve AoV Peak Bertrand.147.5cm/sAoV VTI29.8cm AO Peak GR.8.7mmHgLVOT Peak Bertrand.84.5cm/s AO Mean GR.4mmHgAVA (VMAX)2.99cm2 Mitral Valve MV E Mfvobtkp13.9cm/sMV DECEL [id number] MV A Lxsrohpx53.2cm/sE/A Ratio0.8 Pulmonary Valve PV Peak Ruvkolrk84.1cm/s Tricuspid Valve TR P. Mwvofjrm125kh/sTR Peak Gr.18mmHg LEFT VENTRICLE The left ventricle is normal size. There is borderline to mild concentric left ventricular hypertroph y. The left ventricular systolic function is normal and the ejection fraction is within normal range. Estimated ejection fraction 55% There is normal LV segmental wall motion. Transmitral Doppler flow p attern is Grade I-abnormal relaxation pattern. RIGHT VENTRICLE The right ventricle is normal size. There is normal right ventricular wall thickness. The right ventr icular systolic function is normal. ATRIA The left atrium size is normal. The right atrium size is normal. The interatrial septum is intact wit h no evidence for an atrial septal defect or patent foramen ovale as noted on 2-D or Doppler imaging. AORTIC VALVE The aortic valve is normal in structure and function. Doppler and Color Flow revealed no significant aortic regurgitation. There is no significant aortic valvular stenosis. MITRAL VALVE The mitral valve is normal in structure and function. There is no evidence of mitral valve prolapse. There is no mitral valve stenosis. Doppler and Color-flow revealed mild mitral regurgitation. TRICUSPID VALVE The tricuspid valve is normal in structure and function. Doppler and Color Flow revealed trace to mil d tricuspid regurgitation. Estimated PAP 21 mmHg. There is no tricuspid valve stenosis. PULMONIC VALVE Doppler and Color Flow revealed trace to mild pulmonic valvular regurgitation. There is no pulmonic v alvular stenosis. GREAT VESSELS The aortic root is normal in size. The IVC is normal in size and collapses >50% with inspiration. PERICARDIAL EFFUSION There is no evidence of significant pericardial effusion. Critical Notification Critical Value: No <Conclusion> The left ventricular systolic function is normal and the ejection fraction is within normal range. E stimated ejection fraction 55% There is normal LV segmental wall motion. Signed by : David Sampson, Electronically Approved : 08/07/2021 15:53:49
[2021-08-07] MEDS ORDERED: ATORVASTATIN CALCIUM 20 MG TABLET PO SCH (21:00)
[2021-08-08 04:17] LABS: HEMOGLOBIN A1C 7.4 % (4.8-5.6)
== END 2021-08-07 15:45 | disposition home or self-care (01) ==
LOC: ER 14:19 → INTOOBSV 16:56 → 6 SOUTH 16:56
PROVIDERS: ADMIT Internal Medicine; ATTEND Internal Medicine
DX: I47.1 Supraventricular tachycardia (principal); Z20.822 Contact with and (suspected) exposure to COVID-19; I12.9 Hypertensive chronic kidney disease with stage 1 through stage 4 chronic kidney disease, or unspecified chronic kidney disease; N18.9 Chronic kidney disease, unspecified; E11.9 Type 2 diabetes mellitus without complications; D72.829 Elevated white blood cell count, unspecified; E78.5 Hyperlipidemia, unspecified; J30.9 Allergic rhinitis, unspecified; R79.89 Other specified abnormal findings of blood chemistry; E78.2 Mixed hyperlipidemia; F32.9 Major depressive disorder, single episode, unspecified; R00.2 Palpitations; R42 Dizziness and giddiness; N40.0 Benign prostatic hyperplasia without lower urinary tract symptoms; Z87.891 Personal history of nicotine dependence; Z98.61 Coronary angioplasty status; Z79.82 Long term (current) use of aspirin; Z79.899 Other long term (current) drug therapy; Z98.890 Other specified postprocedural states
CPT/HCPCS: 36415; 71045; 80053; 80061; 80307; 81001; 83036; 83735; 84443; 85025; 87086; 87426; 93005; 93306; 96372; 96374; 99285; G0378; J0153; J1815; U0003; U0005; G0379